=== PATIENT | female | born 1935 | race African-American/Black ===

== ENCOUNTER 2019-09-19 12:44 | Observation (INO) | payer MEDICARE, SELFPAY ==
[2019-09-19] VITALS (8 sets, daily range): BP systolic 121–201; BP diastolic 71–115; PULSE 65–99; RESP 16–20; TEMP 36.3–36.7; O2SAT 96–100; BMI 22.0
--- NOTE | ~2019-09-19 | XR_ITS ---
XR chest 1V 09/19/2019 13:58 Indication: Sternal chest pain. Procedure: AP view of the chest Comparison: 05/30/2019 Findings: Study is rotated. Heart size normal for technique. No focal air space disease, pulmonary ed kayleen, pleural effusion or suspected pneumothorax. There is advanced degenerative changes of the glenoh umeral joints. No acute osseous abnormality. There are cholecystectomy clips. Impression: 1: No acute cardiopulmonary disease. Reviewed, dictated and finalized at location A. Impression: 1: No acute cardiopulmonary disease.
--- NOTE | ~2019-09-19 | CT_ITS ---
EXAMINATION: CT brain wo con DATE: 09/19/2019 14:04 INDICATION: Headache. Behavior change. TECHNIQUE: Computed tomography (CT) of the head was performed without intravenous contrast. The mA wa s adjusted according to patient size. Iterative reconstruction technique was employed. The dose-lengt h product was 605.33 mGy-cm. COMPARISON: Head CT 05/30/2019 FINDINGS: There are scattered areas of low attenuation in the cerebral white matter. There is no intr acranial hemorrhage, acute infarction, or abnormal intracranial mass lesion. The ventricles are karissa l in size. There is mild mucosal thickening in the paranasal sinuses. The orbits are normal. The mast oid air cells are normal. IMPRESSION: 1. Unchanged moderate nonspecific cerebral white matter disease, which likely represents chronic smal l vessel ischemic disease. Reviewed, dictated and finalized at location A. IMPRESSION: 1. Unchanged moderate nonspecific cerebral white matter disease, which likely r epresents chronic small vessel ischemic disease.
--- NOTE | 2019-09-19 12:56 | ED.GENADULT ---
HPI - General Adult General Chief complaint: Unspecified Stated complaint: AGGRESSIVE BEHAVIOR Time Seen by Provider: 09/19/19 12:53 Source: patient and RN notes reviewed Mode of arrival: EMS Limitations: other (Pt refused to cooperate.) History of Present Illness HPI narrative: Pt is an 84 y/o female presenting to the ED c/o AMS. ED nurse reports the pt has been acting aggressive and cussing at her [facility] staff and fellow residents earlier today. Per nurse, the pt is calm at baseline. Pt states she does not want to answer any questions. Pt's family at bedside reports the pt has been c/o CP and SPENCER. HPI is limited due to the pt refusing to cooperate or answer most questions. Most information provided by ED nurse and pt's family. Onset (ago): unknown (Earlier today) Associated symptoms: chest pain (Per family) and headaches (Per family) Related Data Home Medications Medication Instructions Recorded Confirmed Aspirin Low Dose 81 mg BYMOUTH DAILY 09/19/19 09/19/19 Oyster Shell + D3 500 mg BYMOUTH DAILY 09/19/19 09/19/19 alendronate-vitamin D3 1,000 unit BYMOUTH DAILY 09/19/19 09/19/19 azathioprine 50 mg BYMOUTH DAILY 09/19/19 09/19/19 calcium carbonate [Tums] 200 mg PO QID PRN 09/19/19 09/19/19 clopidogrel 75 mg BYMOUTH DAILY 09/19/19 09/19/19 diclofenac sodium 2 g TOPICAL TID PRN 09/19/19 09/19/19 diphenoxylate-atropine 5 mg BYMOUTH PRN PRN MDD 10 09/19/19 09/19/19 gabapentin 300 mg BYMOUTH DAILY 09/19/19 09/19/19 hydrochlorothiazide 25 mg PO DAILY 09/19/19 09/19/19 lansoprazole 15 mg BYMOUTH DAILY 09/19/19 09/19/19 latanoprost 0.005 % OPHTHALMIC (EYE) DAILY 09/19/19 09/19/19 lisinopril 10 mg BYMOUTH DAILY 09/19/19 09/19/19 magnesium oxide 400 mg BYMOUTH DAILY 09/19/19 09/19/19 prednisone 5 mg BYMOUTH DAILY 09/19/19 09/19/19 quetiapine 25 mg BYMOUTH BID 09/19/19 09/19/19 tramadol 50 mg BYMOUTH Q8-10H PRN 09/19/19 09/19/19 Allergies Allergy/AdvReac Type Severity Reaction Status Date / Time No Known Allergies Allergy Verified 05/30/19 01:21 Review of Systems Review of Systems: Narrative: ROS is limited due to pt refusing to cooperate or answer most questions. All systems reviewed & are unremarkable except as noted in HPI and below Cardiovascular: Cardiovascular: Reports chest pain (Per family) Neurologic: Reports headache(s) (Per family) Psychiatric: Psychiatric: Reports behavioral changes (Aggressive (per ED nurse)) [facility] Past Medical History Medical History (Updated 09/19/19 @ 20:51 by Jumana Yates MD) Arthritis Asthma Cataracts, bilateral HTN (hypertension) Rib fracture Tibia fracture Surgical History Surgical History No significant past surgical history Social History Social History Smoking status: Never smoker Gender identity (if verbalized by the patient): Female Exam Const: General: alert Other: patient extremely agitated HENMT: Head: normocephalic and atraumatic Mouth: Yes Normal oral and palatal mucosa present and Yes lip normal Eyes: Conjunctivae: conjunctivae normal Pupils: Equal, round and reactive pupils present EOM: EOMs intact bilaterally Resp: Effort & Inspection: normal respiratory effort, not labored and not tachypneic Auscultation: clear to auscultation bilaterally Cardio: Rate: regular rate Rhythm: regular rhythm Heart sounds: no murmurs GI: GI Palp: Yes Soft to palpation, No Tenderness to palpation present (GI) and No Guarding due to palpation present (GI) Skin: General skin exam: normal color Neuro: General: moves all extremities Psych: Appearance: well kempt Thought content: Yes Paranoid delusions present and Yes other (agitated) Course Course Emergency Course: PAtient presented from [facility] Patient's daughter in law states patient has been in [facility] for [facility] months and her dementia appears to be worsen. Her son states patient was complaining of chest milla
[2019-09-19] MEDS: HALOPERIDOL LACTATE 5 MG/ML VIAL IM (13:28)
[2019-09-19] MEDS: LORAZEPAM INJ 2 MG/ML VIAL 1 MG IM (13:28)
--- NOTE | 2019-09-19 13:43 | ECG_ITS ---
Measurements Intervals [place] Rate: 79 P: 49 IA: 138 QRS: 21 QRSD: 80 T: 50 QT: 334 QTc: 383 Interpretive Statements SINUS RHYTHM VOLTAGE CRITERIA FOR LVH BORDERLINE T WAVE ABNORMALITY- INF/LAT LEADS BASELINE ARTIFACT- I, II, III, AVL BORDERLINE ECG Electronically Signed On 09-19-2019 15:54:54 CDT by Daniel Vizcaino D.O.
[2019-09-19 14:20] LABS: Basophils Percent Auto 0.4 % (0.2-1.2); Eosinophils Absolute Auto 0.1 K/mm3 (0-0.3); Eosinophils Percent Auto 1.8 % (0-4.4); Hematocrit 34.9 % (37.0-47.0); Hemoglobin 10.7 g/dL (12.0-15.0); Immature Granulocyte Absolute 0.01 K/mm3 (0.00-0.031); Immature Granulocyte Percent A 0.2 % (0-0.5); Lymphocytes Absolute Auto 0.47 K/mm3 (0.9-3.2); Lymphocytes Percent Auto 9.3 % (18.3-44.2); Mean Corpuscular HGB Conc 30.7 g/dl (32-36); Mean Corpuscular Volume 91.4 fl (80-100); Mean Platelet Volume 11.1 fl (7.4-10.4); Monocytes Absolute Auto 0.3 K/mm3 (0.1-0.6); Monocytes Percent Auto 6.3 % (2.6-8.5); Neutrophils Absolute Auto 4.2 K/mm3 (1.3-6.7); Platelet Count Result 158 k/mm3 (150-375); Red Blood Count 3.82 M/mm3 (4.2-5.4); Red Cell Distribution Width 13.7 % (11.5-14.5); White Blood Count 5.1 K/mm3 (4.5-10.0)
[2019-09-19 14:28] LABS: INR 1.1; Prothrombin Time 13.7 Seconds (11.1-14.7)
[2019-09-19 14:29] LABS: Partial Thromboplastin Time 31.8 SECONDS (22.3-36.8)
[2019-09-19 14:30] LABS: Alanine Aminotransferase 18 U/L (4-35); Albumin Level 3.6 g/dL (3.5-5.1); Alkaline Phosphatase 113 U/L (38-126); Ammonia < 9 umol/L (9-30); Aspartate Amino Transferase 29 U/L (14-36); Bilirubin,Total 0.5 mg/dL (0.2-1.3); Blood Urea Nitrogen 21 mg/dL (7-17); Carbon Dioxide 28 mmol/L (22-30); Chloride 106 mmol/L (98-107); Estimated Glomerular Filt Rate > 60; Ethanol < 10 mg/dL (<10); Glucose 91 mg/dL (65-105); Magnesium 1.9 mg/dL (1.6-2.3); Potassium 3.9 mmol/L (3.4-5.0); Sodium 143 mmol/L (137-145)
[2019-09-19 14:33] LABS: Add Urine Microscopic? YES; Appearance Urine Clear (Clear); Bacteria Urine 4+ /hpf; Bilirubin Urine Negative (Negative); Blood Urine 1+ (Negative); Color Urine Yellow (Yellow); Glucose Urine UA Negative (Negative); Ketones Urine Negative (Negative); Leukocyte Esterase Ur 1+ LEU/UL (Negative); Mucus Urine Rare /lpf; Nitrate Urine Positive (Negative); Protein Urine Negative (Negative); Specific Grav Ur 1.025 (1.001-1.035); Squamous Epithelial Cell Urine Rare /hpf (Few); Urobilinogen Urine Negative mg/dL (<2.0)
[2019-09-19 14:42] LABS: Troponin I < 0.012 ng/mL (0.000-0.034)
[2019-09-19 14:45] LABS: Amphetamine Screen Urine Negative (Negative); Barbiturate Screen Urine Negative (Negative); Benzodiazepines Screen Urine Negative (Negative); Cannabinoid Screen Urine Negative (Negative); Cocaine Screen Urine Negative (Negative); Methadone Screen Urine Negative (Negative); Opiate Screen Urine Negative (Negative); Phencyclidine Screen Urine Negative (Negative)
[2019-09-19 17:54] LABS: Troponin I < 0.012 ng/mL (0.000-0.034)
--- NOTE | 2019-09-19 20:55 | ADMGEN ---
This patient, Harika Suárez, was admitted to IMU Room 207-01 FROM ER 09/19/191944. Patient/family oriented to hospital policies and general routines including ID bracelet, bed and alarms, visiting hours, pain management, procedures, bathroom and other care routines, personal items, smoking policy, room service/diet, and visiting hours. Valuables list has been completed. Information on how to activate the Rapid Response Team has been discussed. Patient/Family are encouraged to report perceived risks to care and to ask questions if they do not understand what they are told or what they should do.
[2019-09-19 20:56] LABS: Troponin I < 0.012 ng/mL (0.000-0.034)
[2019-09-20] VITALS (7 sets, daily range): BP systolic 152–178; BP diastolic 64–86; PULSE 62–93; RESP 20; TEMP 36.6–37; O2SAT 98–100
[2019-09-20 08:03] LABS: Glucose Point of Care 84 (65-105)
--- NOTE | 2019-09-20 09:33 | PM.IMHP ---
H&P: HPI History of Present Illness Chief complaint: AGGRESSIVE BEHAVIOR Narrative: Date of visit 09/19 899. jaleesa Suárez is a 84 year old demented black female with hypertension and history cirrhosis secondary to autoimmune hepatitis. She is resident of a local group home apparently on the was very belligerent which is very unusual and was brought to the emergency room for evaluation. Here found to have mild UTI and admitted with UTI and altered mental status. There was a question at 1 point of some chest discomfort but she denies any chest discomfort now and EKG and troponins have been normal. Presently does not know why she is in the hospital and wants to eat and go home Review of Systems Review of Systems: Narrative: Not sure how reliable her review of systems is with her dementia Constitutional states she has good appetite and weight is steady Eye no double vision [place] Mouth no pharyngitis laryngitis Pulmonary no shortness breath wheezing or cough CV no chest pain or palpitation GI no nausea vomiting or diarrhea and no melena no hematochezia denies any dysuria Muscle skeletal no particular joint discomfort Integument no skin breakdown rashes Psych no particular problems PMFSH Past Medical History Medical History (Updated 09/20/19 @ 09:42 by Pedro Barboza MD) Arthritis Asthma Cataracts, bilateral HTN (hypertension) Rib fracture Tibia fracture Surgical History Surgical History No significant past surgical history Family History Family History (Updated 09/19/19 @ 20:57 by Kat Mojica RN) Other Unknown family medical history Social History Social History Smoking packs per day: 0.5 Smoking cigarettes per day: 10.0 Years smoked: 2 Smoking pack-years: 1.00 Smoking status: Former smoker Tobacco type: cigarettes Second hand tobacco smoke exposure: No Additional smoking assessment comments: STOPPED SMOKING MANY YRS. AGO Alcohol intake: former Drinks per week: 1 Substance use: never Gender identity (if verbalized by the patient): Female Spiritual care concerns: No Agree to blood products: Yes Meds Home Medications and Allergies Home Medications Medication Instructions Recorded Confirmed Type Aspirin Low Dose 81 mg BYMOUTH DAILY 09/19/19 09/19/19 History Oyster Shell + D3 500 mg BYMOUTH DAILY 09/19/19 09/19/19 History alendronate-vitamin D3 1,000 unit BYMOUTH DAILY 09/19/19 09/19/19 History azathioprine 50 mg BYMOUTH DAILY 09/19/19 09/19/19 History calcium carbonate [Tums] 200 mg PO QID PRN 09/19/19 09/19/19 History clopidogrel 75 mg BYMOUTH DAILY 09/19/19 09/19/19 History diclofenac sodium 2 g TOPICAL TID PRN 09/19/19 09/19/19 History diphenoxylate-atropine 5 mg BYMOUTH PRN PRN MDD 10 09/19/19 09/19/19 History gabapentin 300 mg BYMOUTH DAILY 09/19/19 09/19/19 History hydrochlorothiazide 25 mg PO DAILY 09/19/19 09/19/19 History lansoprazole 15 mg BYMOUTH DAILY 09/19/19 09/19/19 History latanoprost 0.005 % OPHTHALMIC (EYE) DAILY 09/19/19 09/19/19 History lisinopril 10 mg BYMOUTH DAILY 09/19/19 09/19/19 History magnesium oxide 400 mg BYMOUTH DAILY 09/19/19 09/19/19 History prednisone 5 mg BYMOUTH DAILY 09/19/19 09/19/19 History quetiapine 25 mg BYMOUTH BID 09/19/19 09/19/19 History tramadol 50 mg BYMOUTH Q8-10H PRN 09/19/19 09/19/19 History Allergies Allergy/AdvReac Type Severity Reaction Status Date / Time No Known Allergies Allergy Verified 05/30/19 01:21 Vital Signs Vital Signs - 24 hr 09/19/19 12:48 09/19/19 13:49 09/19/19 14:00 Temperature 36.3 C L Pulse Rate 85 99 Respiratory Rate 16 16 Blood Pressure 201/115 H Pulse Oximetry 97 96 09/19/19 16:48 09/19/19 19:31 09/19/19 19:50 Temperature 36.7 C Pulse Rate 65 76 68 Respiratory Rate 16 19 20 Blood Pressure 150/80 H 121/71 151/71 H Pulse Oximetry 99 100 100 09/19/19 20:00
[2019-09-20] MEDS: hydroCHLOROthiazide 25 MG TABLET PO (10:14)
[2019-09-20] MEDS: AZATHIOPRINE 50 MG TABLET BY MOUTH (10:14)
[2019-09-20] MEDS: ASPIRIN 81 MG CHEWABLE TABLET PO (10:14)
[2019-09-20] MEDS: predniSONE 5 MG TABLET BY MOUTH (10:14)
[2019-09-20] MEDS: lisinopriL 10 MG TABLET PO (10:14)
[2019-09-20] MEDS: GABAPENTIN 300 MG CAPSULE BY MOUTH (10:14)
[2019-09-20] MEDS: QUEtiapine FUMARATE 25 MG TABLET BY MOUTH (10:14)
[2019-09-20] MEDS: CLOPIDOGREL BISULFATE 75 MG TABLET BY MOUTH (10:15)
[2019-09-20] MEDS: MAGNESIUM OXIDE 400 MG TABLET BY MOUTH (10:15)
[2019-09-20] MEDS: ENOXAPARIN 40 MG/0.4 ML SYRINGE SUB-Q (10:15)
--- NOTE | 2019-09-21 18:09 | PM.DS ---
DS: Diagnosis Admitting Diagnosis Admitting Diagnosis: Restlessness and agitation Discharge Diagnosis (1) Agitated: Code(s): R45.1 - Restlessness and agitation Status: Acute Assessment and Plan: Behavior here was totally normal for her demented state. She is very cooperative but became tearful wanting to be discharged. There is no reason to continue her observation she was sent back to the half-way (2) Acute UTI (urinary tract infection): Code(s): N39.0 - Urinary tract infection, site not specified Status: Acute Assessment and Plan: With given ceftriaxone while here and urine grew Klebsiella pneumoniae which was sensitive to the ceftriaxone. She had 2 days of treatment here and will have another day of Cipro 500 b.i.d. to finish a 3 day course. It is doubtful whether this had any bearing on her mental status change. (3) HTN (hypertension): Code(s): I10 - Essential (primary) hypertension Status: Acute Assessment and Plan: Pressure slightly toward the high side. Resumed her GRAY-inhibitor and diuretic which were initially held. (4) Dementia: Code(s): F03.90 - Unspecified dementia without behavioral disturbance Status: Acute Assessment and Plan: Ongoing with her history of cirrhosis. Ammonia level nondetected. Could be progression of the disease are could possibly be from low-grade UTI which was treated (5) Cirrhosis of liver: Code(s): K74.60 - Unspecified cirrhosis of liver Status: Acute Assessment and Plan: LFTs are normal. And ammonia level is nondetectable. No evidence of ascites. Continue Imuran and prednisone DS: Summary Hospital Course Hospital Course: 84-year-old hypertensive black female with dementia admitted through the emergency room for observation with altered mental status. Apparently she being somewhat belligerent and combative at the half-way. While here she was cooperative pleasant and only became upset when she thought she was not going to be discharged. Had some mild pyuria and urine did grow Klebsiella which was sensitive to the ceftriaxone which she had and will finish 3 day course of ciprofloxacin at the half-way She will follow-up with her primary care within the next 1-2 weeks Time Spent with Patient Time attestation: Total time spent providing and/or coordinating discharge services: 35 minutes Exam Narrative: Exam Narrative: Condition on discharge Blood pressure 164/76 pulse is 78 regular afebrile Lungs clear CV regular rate rhythm Abdomen is soft nontender Extremities without edema Neuro she is alert she is cooperative no focal deficits She was discharged to the half-way Discharge Plan Discharge Attending physician on discharge: Pedro Barboza Discharging Clinician: Pedro Barboza Patient Disposition: [facility] Activity: as tolerated Diet: low sodium Patient Instructions: Antibiotic Form, Chest Pain (DC), Urinary Tract Infection in Women (ED), Dementia (GEN) Stand Alone Forms: General Discharge Information Follow-up/Referrals: [facility]] - 1 Week Discharge Medications: New ciprofloxacin HCl [Cipro] 500 mg tablet 500 mg PO Q12H Qty: 1 RF: 0 Continued Aspirin Low Dose 81 mg BYMOUTH DAILY RF: 0 Oyster Shell + D3 500 mg BYMOUTH DAILY RF: 0 alendronate-vitamin D3 1,000 unit BYMOUTH DAILY RF: 0 azathioprine 50 mg BYMOUTH DAILY RF: 0 clopidogrel 75 mg BYMOUTH DAILY RF: 0 diclofenac sodium 2 g topical TID PRN (Reason: Pain) RF: 0 diphenoxylate-atropine 5 mg BYMOUTH PRN MDD 10 PRN (Reason: Diarrhea) RF: 0 gabapentin 300 mg BYMOUTH DAILY RF: 0 lansoprazole 15 mg BYMOUTH DAILY RF: 0 latanoprost 0.005 % ophthalmic (eye) DAILY RF: 0 lisinopril 10 mg BYMOUTH DAILY RF: 0 magnesium oxide 400 mg BYMOUTH DAILY RF: 0
== END 2019-09-20 12:20 ==
LOC: ANHED 14:43 → ANHIMU 18:49
PROVIDERS: Admitting Provider Family Medicine; Emergency Provider General Practice; Visit Provider Family Medicine
DX: N39.0 Urinary tract infection, site not specified (principal); B96.1 Klebsiella pneumoniae [K. pneumoniae] as the cause of diseases classified elsewhere; R45.1 Restlessness and agitation; F03.90 Unspecified dementia, unspecified severity, without behavioral disturbance, psychotic disturbance, mood disturbance, and anxiety; I10 Essential (primary) hypertension; R07.9 Chest pain, unspecified; K74.69 Other cirrhosis of liver; Z87.891 Personal history of nicotine dependence; Z79.82 Long term (current) use of aspirin; Z79.899 Other long term (current) drug therapy
CPT/HCPCS: 36415; 51701; 70450; 71045; 80053; 80307; 81001; 82140; 83735; 84484; 85025; 85610; 85730; 87077; 87081; 87086; 87088; 87186; 93005; 96365; 96372; 99285; A9270; G0378; J0696; J1630; J1650; J2060; J7512

== ENCOUNTER 2020-05-03 14:58 | Observation (INO) | payer MEDICARE, MEDICAID, SELFPAY ==
[2020-05-03] VITALS (8 sets, daily range): BP systolic 101–140; BP diastolic 68–98; PULSE 72–84; RESP 13–18; TEMP 36.6–36.7; O2SAT 96–100; BMI 22.2
--- NOTE | ~2020-05-03 | XR_ITS ---
XR chest 1V 05/03/2020 15:46 Indication: Abnormal labs. Procedure: AP view of the chest Comparison: Comparison to multiple prior studies sequentially, with oldest reviewed study dated 10/21. Findings: Heart size normal. Linear infiltrates of the lung bases, likely atelectasis. No focal pneum onia, edema, effusion or pneumothorax. There are advanced degenerative changes of the glenohumeral jorge alberto ints. Impression: 1: Linear infiltrates of the lower lung zones, likely atelectasis. Reviewed, dictated and finalized at location B. Impression: 1: Linear infiltrates of the lower lung zones, likely atelectasis.
--- NOTE | ~2020-05-03 | US_ITS ---
EXAMINATION: US renal BI DATE: 05/04/2020 11:14 INDICATION: Renal failure TECHNIQUE: Multiple ultrasound grayscale images of the kidneys were obtained. COMPARISON: None. FINDINGS: The right kidney measures 7.8 x 3.2 x 3.6 cm. The left kidney measures 8.2 x 3.5 x 4.3 cm. The kidney s demonstrate normal echogenicity. 1.8 cm anechoic cyst at the upper pole of the left kidney. There i s no hydronephrosis in either kidney. No stones identified. There appears to be some wall thickening of the bladder which may be related to decompressed state which limits evaluation. IMPRESSION: 1. Likely age-related mild bilateral renal atrophy with 1.8 cm left renal cyst. No hydronephrosis. Reviewed, dictated and finalized at location A. IMPRESSION: 1. Likely age-related mild bilateral renal atrophy with 1.8 cm left renal cyst . No hydronephrosis.
--- NOTE | ~2020-05-03 | CT_ITS ---
EXAMINATION: CT brain wo con DATE: 05/03/2020 15:35 INDICATION: Increasing confusion. TECHNIQUE: Computed tomography (CT) of the head was performed without intravenous contrast. The dose- length product was 605.33 mGy-cm. The mA was adjusted according to patient size. Iterative reconstruc tion technique was employed. COMPARISON: CT dated 09/19/2019 FINDINGS: Generalized atrophy. There are scattered moderate periventricular and subcortical white mat ter changes, most likely related to small vessel ischemic disease (microangiopathy). There is intracr anial atherosclerosis. No acute intracranial hemorrhage, infarction, mass or mass effect. Sagittal images are unremarkable. Small air-fluid level left maxillary sinus. Mastoids are pneumatize d. No depressed skull fractures. IMPRESSION: 1. No acute intracranial abnormality. 2: Left maxillary sinusitis. 3: Chronic age-related findings. Reviewed, dictated and finalized at location B.
--- NOTE | 2020-05-03 15:18 | ED.GENADULT ---
HPI - General Adult General Chief complaint: Recheck/Abnormal Lab/Rx Stated complaint: AMS Time Seen by Provider: 05/03/20 15:01 Source: patient and RN notes reviewed Mode of arrival: EMS Limitations: altered mental status History of Present Illness HPI narrative: Patient is an 84-year-old female [facility] due to altered mental status and abnormal lab value, creatinine was 3.4 when it was drawn at the penitentiary yesterday. Patient is slightly allergic but able to answer queries. Patient denies headache, dizziness, weakness, numbness, chest pain, abdominal pain, nausea vomiting, diarrhea or fever Related Data Home Medications Medication Instructions Recorded Confirmed Aspirin Low Dose 81 mg BYMOUTH DAILY 09/19/19 09/19/19 Oyster Shell + D3 500 mg BYMOUTH DAILY 09/19/19 09/19/19 alendronate-vitamin D3 1,000 unit BYMOUTH DAILY 09/19/19 09/19/19 azathioprine 50 mg BYMOUTH DAILY 09/19/19 09/19/19 calcium carbonate [Tums] 200 mg PO QID PRN 09/19/19 09/19/19 clopidogrel 75 mg BYMOUTH DAILY 09/19/19 09/19/19 diclofenac sodium 2 g TOPICAL TID PRN 09/19/19 09/19/19 diphenoxylate-atropine 5 mg BYMOUTH PRN PRN MDD 10 09/19/19 09/19/19 gabapentin 300 mg BYMOUTH DAILY 09/19/19 09/19/19 lansoprazole 15 mg BYMOUTH DAILY 09/19/19 09/19/19 latanoprost 0.005 % OPHTHALMIC (EYE) DAILY 09/19/19 09/19/19 lisinopril 10 mg BYMOUTH DAILY 09/19/19 09/19/19 magnesium oxide 400 mg BYMOUTH DAILY 09/19/19 09/19/19 prednisone 5 mg BYMOUTH DAILY 09/19/19 09/19/19 quetiapine 25 mg BYMOUTH BID 09/19/19 09/19/19 tramadol 50 mg BYMOUTH Q8-10H PRN 09/19/19 09/19/19 Allergies Allergy/AdvReac Type Severity Reaction Status Date / Time No Known Allergies Allergy Verified 05/03/20 17:38 Review of Systems Review of Systems: All systems reviewed & are unremarkable except as noted in HPI and below ROS unobtainable: Yes unobtainable due to mental status [facility] Past Medical History Medical History (Updated 05/03/20 @ 18:00 by Felipe Arellano MD) Arthritis Asthma Cataracts, bilateral HTN (hypertension) Rib fracture Tibia fracture Surgical History Surgical History No significant past surgical history Family History Family History (Updated 09/19/19 @ 20:57 by Kat Mojica RN) Other Unknown family medical history Social History Social History Smoking packs per day: 0.5 Smoking cigarettes per day: 10.0 Years smoked: 2 Smoking pack-years: 1.00 Smoking status: Former smoker Tobacco type: cigarettes Second hand tobacco smoke exposure: No Additional smoking assessment comments: STOPPED SMOKING MANY YRS. AGO Alcohol intake: former Drinks per week: 1 Substance use: never Gender identity (if verbalized by the patient): Female Spiritual care concerns: No Agree to blood products: Yes Exam Const: General: cooperative, comfortable, no acute distress and well developed Orientation/consciousness: No confusion Limitations: no limitations Other: Patient is frail, lethargic HENMT: Head: normal to inspection, normocephalic and atraumatic Ears: hearing grossly normal bilaterally, TM normal on the right and TM normal on the left General nose exam: Normal external nose present, Normal nares present and No nasal discharge present Face and sinus: normal facial exam Mouth: Yes Normal oral and palatal mucosa present, Yes lip normal, Yes tongue normal and Yes oropharynx normal Throat: posterior oropharynx normal, tonsils normal and uvula midline Eyes: General: appearance normal, both eyes and all related structures Pupils: Equal, round and reactive pupils present EOM: EOMs intact bilaterally Neck: Neck: normal visual inspection, full ROM, no lymphadenopathy and no meningeal signs Chest: Chest palpation & inspection: normal inspection of the chest Resp: Effort & Inspection: normal respiratory effort, able to speak
[2020-05-03 15:39] LABS: INR 1.2; Prothrombin Time 15.3 Seconds (11.1-14.7)
[2020-05-03 15:40] LABS: Partial Thromboplastin Time 33.9 SECONDS (22.3-36.8)
[2020-05-03 15:42] LABS: Alanine Aminotransferase 28 U/L (4-35); Albumin Level 3.9 g/dL (3.5-5.1); Alkaline Phosphatase 128 U/L (38-126); Anion Gap 11 mmol/L (8-16); Aspartate Amino Transferase 69 U/L (14-36); Bilirubin,Total 0.4 mg/dL (0.2-1.3); Blood Urea Nitrogen 97 mg/dL (7-17); Calcium 9.1 mg/dL (8.4-10.2); Carbon Dioxide 31 mmol/L (22-30); Chloride 97 mmol/L (98-107); Estimated CRCL calculation 10 ml/min; Estimated Glomerular Filt Rate 16; Glucose 110 mg/dL (65-105); Lactic Acid Reflex 1.5 mmol/L (0.7-2.1); Potassium 4.2 mmol/L (3.4-5.0); Sodium 139 mmol/L (137-145)
[2020-05-03 15:48] LABS: Basophils Percent Auto 0.6 % (0.2-1.2); Eosinophils Absolute Auto 0.4 K/mm3 (0-0.3); Eosinophils Percent Auto 6.2 % (0-4.4); Hematocrit 38.7 % (37.0-47.0); Immature Granulocyte Absolute 0.04 K/mm3 (0.00-0.031); Immature Granulocyte Percent A 0.6 % (0-0.5); Lymphocytes Absolute Auto 0.78 K/mm3 (0.9-3.2); Lymphocytes Percent Auto 11.1 % (18.3-44.2); Mean Corpuscular Hemoglobin 28.4 pg (26-34); Mean Corpuscular Volume 91.5 fl (80-100); Mean Platelet Volume 10.8 fl (7.4-10.4); Monocytes Absolute Auto 0.6 K/mm3 (0.1-0.6); Monocytes Percent Auto 8.7 % (2.6-8.5); Neutrophils Absolute Auto 5.1 K/mm3 (1.3-6.7); Neutrophils Percent Auto 72.8 % (45.5-73.1); Platelet Count Result 243 k/mm3 (150-375); Red Blood Count 4.23 M/mm3 (4.2-5.4); Red Cell Distribution Width 12.9 % (11.5-14.5); White Blood Count 7.1 K/mm3 (4.5-10.0)
[2020-05-03 15:54] LABS: Troponin I < 0.012 ng/mL (0.000-0.034)
[2020-05-03] MEDS: LACTATED RINGERS 1,000 ML 999 ML IV CONT (16:30)
[2020-05-03 16:54] LABS: Add Urine Microscopic? NO; Appearance Urine Clear (Clear); Bilirubin Urine Negative (Negative); Blood Urine Negative (Negative); Color Urine Yellow (Yellow); Glucose Urine UA Negative (Negative); Ketones Urine Negative (Negative); Leukocyte Esterase Ur Negative LEU/UL (Negative); Nitrate Urine Negative (Negative); Protein Urine Negative (Negative); Specific Grav Ur 1.014 (1.001-1.035); Urobilinogen Urine Negative mg/dL (<2.0)
[2020-05-03] MEDS: LACTATED RINGERS 1,000 ML 125 ML IV CONT (22:05)
--- NOTE | 2020-05-03 23:40 | ADMGEN ---
This patient, Harika Orantes, was admitted to [facility] Surg Room 322-01. Patient/family oriented to hospital policies and general routines including ID bracelet, bed and alarms, visiting hours, pain management, procedures, bathroom and other care routines, personal items, smoking policy, room service/diet, and visiting hours. Information on how to activate the Rapid Response Team has been discussed. Patient/Family are encouraged to report perceived risks to care and to ask questions if they do not understand what they are told or what they should do.
[2020-05-04 06:00] VITALS: BP 134/60; PULSE 67; RESP 20; TEMP 37; O2SAT 97
[2020-05-04] MEDS: LACTATED RINGERS 1,000 ML 125 ML IV CONT ×3 (06:21→21:15)
[2020-05-04] MEDS: ACETAMINOPHEN 325 MG TABLET 650 MG PO (09:40)
[2020-05-04] MEDS: CLOPIDOGREL BISULFATE 75 MG TABLET PO (11:39)
[2020-05-04] MEDS: LATANOPROST 0.005% OP SOLN 2.5 ML BTL 1 DROP EACH EYE (11:39)
[2020-05-04] MEDS: ASPIRIN 81 MG CHEWABLE TABLET PO (11:39)
[2020-05-04] MEDS: PANTOPRAZOLE 40 MG TABLET PO (11:39)
[2020-05-04] MEDS: GABAPENTIN 300 MG CAPSULE PO ×2 (11:39→17:46)
[2020-05-04] MEDS: QUEtiapine FUMARATE 25 MG TABLET PO ×2 (11:39→21:12)
[2020-05-04] MEDS: predniSONE 5 MG TABLET PO (11:40)
--- NOTE | 2020-05-04 13:50 | PM.IMHP ---
H&P: HPI History of Present Illness Date/Time: 05/04/20 13:50 Chief complaint: Acute Renal Failure Narrative: Date of visit 05/04 Ann Marie Durant is a 84 year old female with mild dementia, arthritis, and hypertension was sent [facility] the [facility] to [facility] for evaluation for acute renal failure that was found on laboratory were 1 day prior, BUN of 97 and a creatinine of 3.4. She denies any nausea vomiting or diarrhea. She states that her appetite has been okay but apparently she was sent for some confusion also. No fever no chills. She has had no urinary symptoms. No shortness breath wheezing or cough. Review of Systems Review of Systems: Narrative: constitutional patient states weight is stable and appetite good eye no double vision scotoma mouth no pharyngitis laryngitis CV no chest pain palpitation GI no melena, hematochezia, diarrhea, constipation muscle skeletal no particular joint discomfort integument no skin breakdown rashes neuropsych no seizures or syncope PMFSH Past Medical History Medical History (Updated 05/04/20 @ 14:04 by Pedro Barboza MD) Arthritis Asthma Cataracts, bilateral HTN (hypertension) Rib fracture Tibia fracture Surgical History Surgical History No significant past surgical history Family History Family History (Updated 05/04/20 @ 13:56 by Pedro Barboza MD) Father , in his 60s and no definite cause No problems noted. Mother , in her 70s of unknown etiology No problems noted. Other Unknown family medical history Social History Social History (Updated 05/04/20 @ 13:57 by Pedro Barboza MD) Social History: lives in a halfway. She states that she has 10 children that are living and well Smoking packs per day: 0.5 Smoking cigarettes per day: 10.0 Years smoked: 2 Smoking pack-years: 1.00 Smoking status: Unknown if ever smoked Tobacco type: cigarettes Second hand tobacco smoke exposure: No Additional smoking assessment comments: STOPPED SMOKING MANY YRS. AGO Alcohol intake: unknown Drinks per week: 1 Substance use: unknown Gender identity (if verbalized by the patient): Female Spiritual care concerns: No Agree to blood products: Yes Meds Home Medications and Allergies Home Medications Medication Instructions Recorded Confirmed Type Aspirin Low Dose 81 mg BYMOUTH DAILY 09/19/19 05/03/20 History Oyster Shell + D3 500 mg BYMOUTH DAILY 09/19/19 05/03/20 History alendronate-vitamin D3 1,000 unit BYMOUTH DAILY 09/19/19 05/03/20 History azathioprine 25 mg BYMOUTH DAILY 09/19/19 05/03/20 History calcium carbonate [Tums] 200 mg PO QID PRN 09/19/19 05/03/20 History clopidogrel 75 mg BYMOUTH DAILY 09/19/19 05/03/20 History diclofenac sodium 2 g TOPICAL TID PRN 09/19/19 05/03/20 History diphenoxylate-atropine 5 mg BYMOUTH PRN PRN MDD 10 09/19/19 05/03/20 History gabapentin 300 mg BYMOUTH BID 09/19/19 05/03/20 History lansoprazole 15 mg BYMOUTH DAILY 09/19/19 05/03/20 History latanoprost 0.005 % OPHTHALMIC (EYE) DAILY 09/19/19 05/03/20 History lisinopril 10 mg BYMOUTH DAILY 09/19/19 05/03/20 History magnesium oxide 400 mg BYMOUTH DAILY 09/19/19 05/03/20 History prednisone 5 mg BYMOUTH DAILY 09/19/19 05/03/20 History quetiapine 25 mg BYMOUTH BID 09/19/19 05/03/20 History tramadol 50 mg BYMOUTH Q8-10H PRN 09/19/19 05/03/20 History Allergies Allergy/AdvReac Type Severity Reaction Status Date / Time No Known Allergies Allergy Verified 05/04/20 02:43 Vital Signs Vital Signs - 24 hr 05/03/20 14:58 05/03/20 15:15 05/03/20 16:15 Temperature 36.6 C Pulse Rate 84 84 79 Respiratory Rate 16 16 16 Blood Pressure 140/98 H 109/68 106/75 Pulse Oximetry 96 99 96 05/03/20 16:46 05/03/20 17:45 05/03/20 19:38 Temperature 36.6 C Pulse Rate 73 74 72 Respiratory Rate 13 14 16 Blood Pressure 108/85 108/80 130/
[2020-05-04 14:00] VITALS: BP 138/53; PULSE 75; RESP 16; TEMP 36.8; O2SAT 98
[2020-05-04] MEDS: azaTHIOprine 25 MG TABLET PO (15:08)
[2020-05-04] MEDS: HEPARIN SODIUM 5,000 UNITS/ML VIAL 5000 UNITS SUB-Q (21:12)
[2020-05-04 22:00] VITALS: BP 133/62; PULSE 63; RESP 18; TEMP 36.8; O2SAT 100
[2020-05-05 06:00] VITALS: BP 122/61; PULSE 65; RESP 18; TEMP 36.7; O2SAT 97
[2020-05-05 06:27] LABS: Basophils Percent Auto 0.5 % (0.2-1.2); Eosinophils Absolute Auto 0.3 K/mm3 (0-0.3); Eosinophils Percent Auto 4.1 % (0-4.4); Hematocrit 28.8 % (37.0-47.0); Hemoglobin 8.9 g/dL (12.0-15.0); Immature Granulocyte Absolute 0.03 K/mm3 (0.00-0.031); Immature Granulocyte Percent A 0.5 % (0-0.5); Lymphocytes Absolute Auto 0.83 K/mm3 (0.9-3.2); Lymphocytes Percent Auto 13.5 % (18.3-44.2); Mean Corpuscular HGB Conc 30.9 g/dl (32-36); Mean Corpuscular Hemoglobin 28.3 pg (26-34); Mean Corpuscular Volume 91.4 fl (80-100); Mean Platelet Volume 10.5 fl (7.4-10.4); Monocytes Absolute Auto 0.5 K/mm3 (0.1-0.6); Monocytes Percent Auto 8.5 % (2.6-8.5); Neutrophils Absolute Auto 4.5 K/mm3 (1.3-6.7); Neutrophils Percent Auto 72.9 % (45.5-73.1); Platelet Count Result 194 k/mm3 (150-375); Red Blood Count 3.15 M/mm3 (4.2-5.4); Red Cell Distribution Width 12.4 % (11.5-14.5); White Blood Count 6.2 K/mm3 (4.5-10.0)
[2020-05-05 06:49] LABS: Albumin Level 2.7 g/dL (3.5-5.1); Anion Gap 3 mmol/L (8-16); Blood Urea Nitrogen 57 mg/dL (7-17); Calcium 8.3 mg/dL (8.4-10.2); Carbon Dioxide 29 mmol/L (22-30); Chloride 109 mmol/L (98-107); Estimated CRCL calculation 23 ml/min; Estimated Glomerular Filt Rate 37; Glucose 90 mg/dL (65-105); Magnesium 2.9 mg/dL (1.6-2.3); Phosphorus 3.2 mg/dL (2.5-4.5); Potassium 4.1 mmol/L (3.4-5.0); Sodium 141 mmol/L (137-145)
[2020-05-05] MEDS: LACTATED RINGERS 1,000 ML 125 ML IV CONT (07:41)
[2020-05-05] MEDS: GABAPENTIN 300 MG CAPSULE PO ×2 (09:04→17:25)
[2020-05-05] MEDS: azaTHIOprine 25 MG TABLET PO (09:04)
[2020-05-05] MEDS: CLOPIDOGREL BISULFATE 75 MG TABLET PO (09:05)
[2020-05-05] MEDS: ASPIRIN 81 MG CHEWABLE TABLET PO (09:05)
[2020-05-05] MEDS: predniSONE 5 MG TABLET PO (09:05)
[2020-05-05] MEDS: PANTOPRAZOLE 40 MG TABLET PO (09:05)
[2020-05-05] MEDS: LATANOPROST 0.005% OP SOLN 2.5 ML BTL 1 DROP EACH EYE (09:05)
[2020-05-05] MEDS: HEPARIN SODIUM 5,000 UNITS/ML VIAL 5000 UNITS SUB-Q ×2 (09:05→20:54)
[2020-05-05] MEDS: ACETAMINOPHEN 325 MG TABLET 650 MG PO ×2 (09:40→20:56)
[2020-05-05] MEDS: QUEtiapine FUMARATE 25 MG TABLET PO (09:43)
[2020-05-05 14:00] VITALS: BP 113/49; PULSE 67; RESP 18; TEMP 36.4; O2SAT 100
--- NOTE | 2020-05-05 15:16 | PM.IMPN ---
Progress Note: A&P Assessment and Plan (1) Acute renal failure: Qualifiers: Acute renal failure type: unspecified Qualified Code(s): N17.9 - Acute kidney failure, unspecified Code(s): N17.9 - Acute kidney failure, unspecified Status: Acute Assessment and Plan: looks to be all pre renal from Initial laboratory work. Urinalysis is benign. Continue to hydrate and follow. Renal sonogram. No obstruction. Hold GRAY-inhibitor and hold topical anti-inflammatories, creatinine 09/19/2019 was 0.9 And today has fallen to 1.6 (2) Altered mental status: Qualifiers: Altered mental status type: somnolence Qualified Code(s): R40.0 - Somnolence Code(s): R41.82 - Altered mental status, unspecified Status: Acute Assessment and Plan: appears totally oriented present time. Continue to monitor (3) HTN (hypertension): Code(s): I10 - Essential (primary) hypertension Status: Acute Assessment and Plan: blood pressure fine without lisinopril continue to monitor (4) Dementia: Code(s): F03.90 - Unspecified dementia without behavioral disturbance Status: Acute Assessment and Plan: mild and continue HS Seroquel (5) Cirrhosis of liver: Code(s): K74.60 - Unspecified cirrhosis of liver Status: Acute Assessment and Plan: history of such found on CT in the past. No ascites or overt signs of portal hypertension (6) DVT prophylaxis: Code(s): Z29.9 - Encounter for prophylactic measures, unspecified Status: Acute Assessment and Plan: subcu heparin with the renal failure (7) Long-term use of immunosuppressant medication: Code(s): Z79.899 - Other group home (current) drug therapy Status: Acute Assessment and Plan: using the prednisone and Imuran which I assume is probably for her arthritis , and will continue. Doubt would need stress doses of steroids at this time but will continue to monitor Subjective Date/time seen: 05/05/20 15:16 Interval history: Date of visit 05/05. [age] y/[facility] elevated creatinine. Had no specific complaints. Creatinine has fallen with hydration still feels well without any complaints Exam Narrative: Exam Narrative: Blood pressure 114/50 pulse is 66 sat 100% on room air afebrile Pupils equal reactive light sclera anicteric Lungs clear no wheezing consolidation CV regular rate rhythm Abdomen soft nontender no masses Extremities without edema distal pulses 2+ Neuro alert pleasant cooperative no focal deficits Objective Data Vital Signs Vital Signs: Vital Signs - 24 hr 05/04/20 22:00 05/05/20 06:00 05/05/20 14:00 Temperature 36.8 C 36.7 C 36.4 C Pulse Rate 63 65 67 Respiratory Rate 18 18 18 Blood Pressure 133/62 122/61 113/49 L Pulse Oximetry 100 97 100 Intake/Output Intake/Output: Intake & Output 05/02/20 05/03/20 05/04/20 05/05/20 23:59 23:59 23:59 23:59 Intake Total 1000 3150 1540 Output Total 150 301 200 Balance 850 2849 1340 Meds/Results Medications: Active Medications Generic Name Dose Route Start Last Admin Trade Name Freq PRN Reason Stop Dose Admin Acetaminophen 650 mg 05/04/20 09:21 05/05/20 09:40 Acetaminophen 325 Mg Tablet PO 650 mg Q6H PRN Administration Mild Pain (1-3) or Fever Aspirin 81 mg 05/04/20 08:00 05/05/20 09:05 Aspirin 81 Mg Chewable Tablet PO 81 mg DAILY@0800 [facility] Administration Azathioprine 25 mg 05/04/20 09:00 05/05/20 09:04 Azathioprine 25 Mg Tablet PO 25 mg QAM [facility] Administration Calcium Carbonate 200 mg 05/04/20 09:19 Calcium Carbonate (Tums) 500 Mg (200 Mg Elemental) PO QID PRN Acid Reflux Calcium Carbonate 500 mg 05/04/20 09:00 05/05/20 09:04 Calcium/Vitamin D 500 Mg Tablet PO 500 mg QAM [facility] Administration Clopidogrel Bisulfate 75 mg 05/04/20 09:00 05/05/20 09:05 Clopidogrel
[2020-05-05] MEDS: QUEtiapine FUMARATE 12.5 MG TABLET PO (20:51)
[2020-05-05] MEDS: LACTATED RINGERS 1,000 ML 75 ML IV CONT (21:02)
[2020-05-05 22:00] VITALS: BP 114/48; PULSE 66; RESP 18; TEMP 36.4; O2SAT 100
[2020-05-06] MEDS: ACETAMINOPHEN 325 MG TABLET 650 MG PO ×2 (05:52→20:31)
[2020-05-06 05:59] LABS: Basophils Percent Auto 0.5 % (0.2-1.2); Eosinophils Absolute Auto 0.3 K/mm3 (0-0.3); Eosinophils Percent Auto 5.5 % (0-4.4); Hematocrit 27.3 % (37.0-47.0); Hemoglobin 8.8 g/dL (12.0-15.0); Immature Granulocyte Absolute 0.04 K/mm3 (0.00-0.031); Immature Granulocyte Percent A 0.7 % (0-0.5); Lymphocytes Absolute Auto 0.97 K/mm3 (0.9-3.2); Lymphocytes Percent Auto 17.3 % (18.3-44.2); Mean Corpuscular HGB Conc 32.2 g/dl (32-36); Mean Corpuscular Hemoglobin 28.9 pg (26-34); Mean Corpuscular Volume 89.5 fl (80-100); Mean Platelet Volume 10.4 fl (7.4-10.4); Monocytes Absolute Auto 0.5 K/mm3 (0.1-0.6); Neutrophils Absolute Auto 3.8 K/mm3 (1.3-6.7); Platelet Count Result 185 k/mm3 (150-375); Red Blood Count 3.05 M/mm3 (4.2-5.4); Red Cell Distribution Width 12.5 % (11.5-14.5); White Blood Count 5.6 K/mm3 (4.5-10.0)
[2020-05-06 06:00] VITALS: BP 148/61; PULSE 117; RESP 18; TEMP 36.7; O2SAT 100
[2020-05-06 06:30] LABS: Anion Gap 5 mmol/L (8-16); Blood Urea Nitrogen 43 mg/dL (7-17); Calcium 7.9 mg/dL (8.4-10.2); Carbon Dioxide 28 mmol/L (22-30); Chloride 112 mmol/L (98-107); Estimated CRCL calculation 24 ml/min; Estimated Glomerular Filt Rate 40; Glucose 91 mg/dL (65-105); Potassium 4.1 mmol/L (3.4-5.0); Sodium 145 mmol/L (137-145)
[2020-05-06 06:43] VITALS: PULSE 65
[2020-05-06 06:49] LABS: Iron 44 ug/dL (37-170)
[2020-05-06 07:02] LABS: Percent Iron Saturation 22 % (20-50)
[2020-05-06 08:00] VITALS: PULSE 65; RESP 18; O2SAT 100
[2020-05-06] MEDS: azaTHIOprine 25 MG TABLET PO (08:17)
[2020-05-06] MEDS: GABAPENTIN 300 MG CAPSULE PO ×2 (08:17→17:27)
[2020-05-06] MEDS: ASPIRIN 81 MG CHEWABLE TABLET PO (08:17)
[2020-05-06] MEDS: CLOPIDOGREL BISULFATE 75 MG TABLET PO (08:18)
[2020-05-06] MEDS: HEPARIN SODIUM 5,000 UNITS/ML VIAL 5000 UNITS SUB-Q ×2 (08:18→20:38)
[2020-05-06] MEDS: LATANOPROST 0.005% OP SOLN 2.5 ML BTL 1 DROP EACH EYE (08:18)
[2020-05-06] MEDS: predniSONE 5 MG TABLET PO (08:18)
[2020-05-06] MEDS: PANTOPRAZOLE 40 MG TABLET PO (08:18)
[2020-05-06 14:00] VITALS: BP 124/61; PULSE 63; RESP 20; TEMP 36.6; O2SAT 100
--- NOTE | 2020-05-06 17:31 | PM.IMPN ---
Progress Note: A&P Assessment and Plan (1) Acute renal failure: Qualifiers: Acute renal failure type: unspecified Qualified Code(s): N17.9 - Acute kidney failure, unspecified Code(s): N17.9 - Acute kidney failure, unspecified Status: Acute Assessment and Plan: looks to be all pre renal from Initial laboratory work. Urinalysis is benign. Continue to hydrate and follow. Renal sonogram. No obstruction. Holding GRAY-inhibitor and hold topical anti-inflammatories, creatinine 09/19/2019 was 0.9 And today has fallen to 1.5 (2) Altered mental status: Qualifiers: Altered mental status type: somnolence Qualified Code(s): R40.0 - Somnolence Code(s): R41.82 - Altered mental status, unspecified Status: Acute Assessment and Plan: appears totally oriented present time but intermitant confusion (3) HTN (hypertension): Code(s): I10 - Essential (primary) hypertension Status: Acute Assessment and Plan: blood pressure fine without lisinopril continue to monitor (4) Dementia: Code(s): F03.90 - Unspecified dementia without behavioral disturbance Status: Acute Assessment and Plan: mild and continue HS Seroquel (5) Cirrhosis of liver: Code(s): K74.60 - Unspecified cirrhosis of liver Status: Acute Assessment and Plan: history of such found on CT in the past. No ascites or overt signs of portal hypertension (6) DVT prophylaxis: Code(s): Z29.9 - Encounter for prophylactic measures, unspecified Status: Acute Assessment and Plan: subcu heparin with the renal failure (7) Long-term use of immunosuppressant medication: Code(s): Z79.899 - Other [facility] (current) drug therapy Status: Acute Assessment and Plan: using the prednisone and Imuran which I assume is probably for her arthritis , and will continue. Doubt would need stress doses of steroids at this time but will continue to monitor Subjective Date/time seen: 05/06/20 17:31 Interval history: Date of visit 05/06. [age] y/o [facility] evaluation elevated creatinine. Had no specific complaints. Creatinine has fallen with hydration still feels well without any complaints Exam Narrative: Exam Narrative: Blood pressure 124/60 pulse is 62 sat 100% on room air afebrile Pupils equal reactive light sclera anicteric Lungs clear no wheezing consolidation CV regular rate rhythm Abdomen soft nontender no masses Extremities without edema distal pulses 2+ Neuro alert pleasant cooperative no focal deficits Objective Data Vital Signs Vital Signs: Vital Signs - 24 hr 05/05/20 22:00 05/06/20 06:00 05/06/20 06:43 Temperature 36.4 C 36.7 C Pulse Rate 66 117 H 65 Respiratory Rate 18 18 Blood Pressure 114/48 L 148/61 H Pulse Oximetry 100 100 05/06/20 08:00 05/06/20 14:00 Temperature 36.6 C Pulse Rate 65 63 Respiratory Rate 18 20 Blood Pressure 124/61 Pulse Oximetry 100 100 Intake/Output Intake/Output: Intake & Output 05/03/20 05/04/20 05/05/20 05/06/20 23:59 23:59 23:59 23:59 Intake Total 1000 3150 3270 210 Output Total 150 301 600 900 Balance 850 2849 2670 -690 Meds/Results Medications: Active Medications Generic Name Dose Route Start Last Admin Trade Name Freq PRN Reason Stop Dose Admin Acetaminophen 650 mg 05/04/20 09:21 05/06/20 05:52 Acetaminophen 325 Mg Tablet PO 650 mg Q6H PRN Administration Mild Pain (1-3) or Fever Aspirin 81 mg 05/04/20 08:00 05/06/20 08:17 Aspirin 81 Mg Chewable Tablet PO 81 mg DAILY@0800 [facility] Administration Azathioprine 25 mg 05/04/20 09:00 05/06/20 08:17 Azathioprine 25 Mg Tablet PO 25 mg QAM [facility] Administration Calcium Carbonate 200 mg 05/04/20 09:19 Calcium Carbonate (Tums) 500 Mg (200 Mg Elemental) PO QID PRN Acid Reflux Calcium Carbonate 500 mg 05/04/20 09:00 05/06/20 08:18
[2020-05-06] MEDS: QUEtiapine FUMARATE 12.5 MG TABLET PO (20:31)
[2020-05-06 22:00] VITALS: BP 142/62; PULSE 59; RESP 20; TEMP 36.9; O2SAT 98
[2020-05-07 06:00] VITALS: BP 126/68; PULSE 60; RESP 20; TEMP 36.2; O2SAT 100
[2020-05-07 06:29] LABS: Anion Gap 2 mmol/L (8-16); Blood Urea Nitrogen 35 mg/dL (7-17); Carbon Dioxide 27 mmol/L (22-30); Chloride 114 mmol/L (98-107); Estimated CRCL calculation 26 ml/min; Estimated Glomerular Filt Rate 43; Glucose 87 mg/dL (65-105); Sodium 143 mmol/L (137-145)
[2020-05-07 08:00] VITALS: PULSE 60; RESP 20; O2SAT 100
[2020-05-07] MEDS: ASPIRIN 81 MG CHEWABLE TABLET PO (10:30)
[2020-05-07] MEDS: GABAPENTIN 300 MG CAPSULE PO ×2 (10:30→16:29)
[2020-05-07] MEDS: HEPARIN SODIUM 5,000 UNITS/ML VIAL 5000 UNITS SUB-Q (10:30)
[2020-05-07] MEDS: LATANOPROST 0.005% OP SOLN 2.5 ML BTL 1 DROP EACH EYE (10:30)
[2020-05-07] MEDS: PANTOPRAZOLE 40 MG TABLET PO (10:30)
[2020-05-07] MEDS: CLOPIDOGREL BISULFATE 75 MG TABLET PO (10:31)
[2020-05-07] MEDS: azaTHIOprine 25 MG TABLET PO (10:31)
[2020-05-07] MEDS: predniSONE 5 MG TABLET PO (10:31)
[2020-05-07] MEDS: traMADol HCL (*CRX) 50 MG TABLET PO (10:34)
[2020-05-07 14:00] VITALS: BP 120/62; PULSE 68; RESP 18; TEMP 36.7; O2SAT 100
--- NOTE | 2020-05-07 15:07 | PCOTNOTE ---
Attempted to see patient this PM, however, patient declined to participate in any ADL task or UB exercise. Patient not seen for OT. Will continue plan of care tomorrow, 05/08/2020.
[2020-05-07] MEDS: ACETAMINOPHEN 325 MG TABLET 650 MG PO (15:28)
--- NOTE | 2020-05-07 16:23 | PM.IMPN ---
Progress Note: A&P Assessment and Plan (1) Acute renal failure: Qualifiers: Acute renal failure type: unspecified Qualified Code(s): N17.9 - Acute kidney failure, unspecified Code(s): N17.9 - Acute kidney failure, unspecified Status: Acute Assessment and Plan: looks to be all pre renal from Initial laboratory work. Urinalysis is benign. Renal sonogram. No obstruction. Holding GRAY-inhibitor and hold topical anti-inflammatories, creatinine 09/19/2019 was 0.9 And today has fallen to 1.4. urine was normal and culture grew Klebsiella but with renal function improving, asymptomatic bacteriuria will not be treated (2) Altered mental status: Qualifiers: Altered mental status type: somnolence Qualified Code(s): R40.0 - Somnolence Code(s): R41.82 - Altered mental status, unspecified Status: Acute Assessment and Plan: appears totally oriented present time but intermitant confusion, her assumed baseline (3) HTN (hypertension): Code(s): I10 - Essential (primary) hypertension Status: Acute Assessment and Plan: blood pressure fine without lisinopril continue to hold at discharge (4) Dementia: Code(s): F03.90 - Unspecified dementia without behavioral disturbance Status: Acute Assessment and Plan: mild and continue HS Seroquel (5) Cirrhosis of liver: Code(s): K74.60 - Unspecified cirrhosis of liver Status: Acute Assessment and Plan: history of such found on CT in the past. 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 no stress doses of steroids were given with blood pressure remaining stable Subjective Date/time seen: 05/07/20 16:23 Interval history: Date of visit 05/07. [age] y/o transferred from [facility] for evaluation elevated creatinine. Had no specific complaints. Creatinine has fallen with hydration still feels well without any complaints Exam Narrative: Exam Narrative: Blood pressure 120/62 pulse is 68 sat 100% on room air afebrile Pupils equal reactive light sclera anicteric Lungs clear no wheezing or consolidation CV regular rate rhythm Abdomen soft nontender no masses Extremities without edema distal pulses 2+ Neuro alert pleasant cooperative no focal deficits Objective Data Vital Signs Vital Signs: Vital Signs - 24 hr 05/06/20 22:00 05/07/20 06:00 05/07/20 08:00 Temperature 36.9 C 36.2 C L Pulse Rate 59 L 60 60 Respiratory Rate 20 20 20 Blood Pressure 142/62 H 126/68 Pulse Oximetry 98 100 100 05/07/20 14:00 Temperature 36.7 C Pulse Rate 68 Respiratory Rate 18 Blood Pressure 120/62 Pulse Oximetry 100 Intake/Output Intake/Output: Intake & Output 05/04/20 05/05/20 05/06/20 05/07/20 23:59 23:59 23:59 23:59 Intake Total 3150 3270 660 700 Output Total 363 257 0612 300 Balance 2849 2670 -640 400 Meds/Results Medications: Active Medications Generic Name Dose Route Start Last Admin Trade Name Freq PRN Reason Stop Dose Admin Acetaminophen 650 mg 05/04/20 09:21 05/07/20 15:28 Acetaminophen 325 Mg Tablet PO 650 mg Q6H PRN Administration Mild Pain (1-3) or Fever Aspirin 81 mg 05/04/20 08:00 05/07/20 10:30 Aspirin 81 Mg Chewable Tablet PO 81 mg DAILY@0800 [facility] Administration Azathioprine 25 mg 05/04/20 09:00 05/07/20 10:31 Azathioprine 25 Mg Tablet PO 25 mg QAM [facility] Administration Calcium Carbonate 200 mg 05/04/20 09:19 Calcium Carbonate (Tums) 500 Mg (200 Mg [place]
[2020-05-07 16:30] LABS: SARS-CoV-2 RNA PCR Negative
--- NOTE | 2020-05-10 11:57 | PM.DS ---
DS: Admitting Diagnosis Admitting Diagnosis Admitting Diagnosis: Acute Renal Failure DS: Discharge Diagnosis Discharge Diagnosis (1) Acute renal failure: Qualifiers: Acute renal failure type: unspecified Qualified Code(s): N17.9 - Acute kidney failure, unspecified Code(s): N17.9 - Acute kidney failure, unspecified Status: Acute Assessment and Plan: looks to be all pre renal from Initial laboratory work. Urinalysis is benign. Renal sonogram. No obstruction. Holding GRAY-inhibitor and hold topical anti-inflammatories, creatinine 09/19/2019 was 0.9 And fell to 1.4. urine was normal and culture grew Klebsiella but with renal function improving, asymptomatic bacteriuria will not be treated repeat BMP 7-10 days at [facility] (2) Altered mental status: Qualifiers: Altered mental status type: somnolence Qualified Code(s): R40.0 - Somnolence Code(s): R41.82 - Altered mental status, unspecified Status: Acute Assessment and Plan: appears totally oriented present time but intermitant confusion, her assumed baseline (3) HTN (hypertension): Code(s): I10 - Essential (primary) hypertension Status: Acute Assessment and Plan: blood pressure fine without lisinopril continue to hold at discharge, ? whether GRAY with low bp could have precipitated renal failure (4) Dementia: Code(s): F03.90 - Unspecified dementia without behavioral disturbance Status: Acute Assessment and Plan: mild and continue HS Seroquel (5) Cirrhosis of liver: Code(s): K74.60 - Unspecified cirrhosis of liver Status: Acute Assessment and Plan: history of such found on CT in the past. No ascites or overt signs of portal hypertension (6) Long-term use of immunosuppressant medication: Code(s): Z79.899 - Other [facility] (current) drug therapy Status: Acute Assessment and Plan: using the prednisone and Imuran which I assume is probably for her arthritis , and will continue. no stress doses of steroids were given with blood pressure remaining stable (7) Anemia: Code(s): D64.9 - Anemia, unspecified Status: Acute Assessment and Plan: hemoglobin fell as expected with hydration. Iron studies were compatible with anemia of chronic disease with the iron and TIBC both low. Hemoglobin 8.8 and discharged in stable DS: Summary Hospital Course Hospital Course: 84-year-old demented female admitted from long-term with routine lab work revealed elevated creatinine. Here with consistent IV hydration and holding her GRAY-inhibitor her creatinine fell from above 3 to 1.4 at discharge. Renal sonogram no obstruction. GRAY-inhibitor was held at discharge and she will have a repeat basic metabolic profile drawn in 7-10 days Time Spent with Patient Time attestation: Total time spent providing and/or coordinating discharge services:35 minutes Exam Narrative: Exam Narrative: condition on discharge blood pressure 120/62 pulse 68 afebrile lungs clear CV regular rate rhythm abdomen soft nontender no masses extremities without edema good distal pulses neuro she is alert pleasant cooperative no focal deficits she was up with assistance and taken a diet well and able to be discharged back to the long-term in stable condition Discharge Plan Discharge Attending physician on discharge: Pedro Barboza Consulting providers: ; Ashwin Garcia ; Refugio Ybarra Discharging Clinician: Pedro Barboza Patient Disposition: [facility] Activity: as tolerated Diet: regular Patient Instructions: Antibiotic Form, Clopidogrel (By mouth), Acute Kidney Injury (DC), Pain Management in Older Adults (DC) Stand Alone Forms: General Discharge Information Follow-up/Referrals: PHYSICIAN NOT ON STAFF,NONSTAFF [Primary Care Provider] - 2 Weeks Discharge Medications: Continued quetiapine 25 mg
== END 2020-05-07 19:55 ==
LOC: ANHED 18:03 → ANH3MEDSUR 19:10
PROVIDERS: Admitting Provider Internal Medicine; Emergency Provider Emergency Medicine; Visit Provider Internal Medicine
DX: N17.9 Acute kidney failure, unspecified (principal); Z20.828 Contact with and (suspected) exposure to other viral communicable diseases; R40.0 Somnolence; D64.9 Anemia, unspecified; F03.90 Unspecified dementia, unspecified severity, without behavioral disturbance, psychotic disturbance, mood disturbance, and anxiety; I10 Essential (primary) hypertension; K74.60 Unspecified cirrhosis of liver; M19.90 Unspecified osteoarthritis, unspecified site; Z87.891 Personal history of nicotine dependence; Z79.899 Other long term (current) drug therapy
CPT/HCPCS: 36415; 51701; 70450; 71045; 76775; 80048; 80053; 80069; 81003; 82728; 83540; 83550; 83605; 83735; 84484; 85025; 85610; 85730; 87077; 87086; 87088; 87186; 87635; 96360; 96361; 96372; 97110; 97162; 97166; 97530; 99285; A9270; C9803; G0378; J1644; J7120; J7512; U0003

== ENCOUNTER 2021-01-20 15:12 | Emergency (ER) | payer MEDICARE, MEDICAID, SELFPAY ==
--- NOTE | ~2021-01-20 | CT_ITS ---
EXAMINATION: CT brain wo con DATE: 01/20/2021 17:43 INDICATION: Confusion TECHNIQUE: Computed tomography (CT) of the head was performed without intravenous contrast. The dose- length product was 605.33 mGy-cm. Automated exposure control and iterative reconstruction technique w ere employed. COMPARISON: CT dated 05/03/2020 FINDINGS: Mild generalized atrophy. There is a chronic left lacunar infarction of the caudate nucleus . No ventriculomegaly or midline shift. There are scattered mild periventricular and subcortical whit e matter changes, most likely related to small vessel ischemic disease (microangiopathy). There is in tracranial atherosclerosis. There is mucosal thickening of the right maxillary, right sphenoid and et hmoid sinuses. Mastoids are pneumatized. No depressed skull fractures. IMPRESSION: 1. No acute intracranial abnormality. 2: Chronic left lacunar infarction. 3: Chronic age-related findings. 4: Moderate sinus disease. Reviewed, dictated and finalized at location A.
--- NOTE | ~2021-01-20 | CT_ITS ---
EXAMINATION: CT abdomen pelvis w con DATE: 01/20/2021 17:51 INDICATION: Nausea, vomiting and diarrhea TECHNIQUE: Computed tomography (CT) of the abdomen and pelvis was performed with 100 cc Omnipaque 350 intravenous contrast. The dose-length product was 559.64 mGy-cm. Automated exposure control and iter ative reconstruction technique were employed. COMPARISON: None. FINDINGS: Lung bases are unremarkable. Heart size normal. There is hiatal hernia. No significant pleu ral or pericardial effusion. There is cirrhosis of the liver. Status post cholecystectomy with expect ed prominence of the bile ducts. The spleen, adrenal glands are unremarkable. There is 2.8 cm cystic mass at the uncinate process of the pancreas. There are bilateral renal cysts. There is abnormal soft tissue of the rectum, suspicious for malignancy. Normal appendix. Moderate atherosclerosis without a neurysm. There is a hiatal hernia. No lymphadenopathy. No free air or free fluid. There is mild bladd er wall thickening which may be due to underdistention or cystitis. There is grade 2 spondylolisthesi s at L4-5. There is disc narrowing at L4-5 and L5-S1. There is multilevel facet hypertrophy. IMPRESSION: 1. Abnormal rectal mass, concerning for adenocarcinoma. Recommend GI consultation. 2: Cirrhosis of the liver. 3: Septated cystic mass of the uncinate process of the pancreas. The differential diagnosis includes pseudocyst, intraductal papillary mucinous neoplasm (IPMN), mucinous cystic neoplasm (MCN), and the l ess common serous cystadenoma and neuroendocrine tumor. 4: Mild bladder wall thickening, possibly due to underdistention versus cystitis. Correlate with urin alysis. Reviewed, dictated and finalized at location A. IMPRESSION: 1. Abnormal rectal mass, concerning for adenocarcinoma. Recommend GI consultati on. 2: Cirrhosis of the liver. 3: Septated cystic mass of the uncinate process of the pancreas. The differenti al diagnosis includes pseudocyst, intraductal papillary mucinous neoplasm (IPMN ), mucinous cystic neoplasm (MCN), and the less common serous cystadenoma and n euroendocrine tumor. 4: Mild bladder wall thickening, possibly due to underdistention versus cystiti s. Correlate with urinalysis.
--- NOTE | ~2021-01-20 | XR_ITS ---
XR shoulder LT min 2V 01/20/2021 18:01 Indication: Left shoulder pain after fall Procedure: 4 views left Comparison: shoulderchest x-ray dated 01/20/2021 and left shoulder series dated 05/30/2018 Findings: There is severe glenohumeral joint osteoarthritis. There are multiple new radiodensities in the left axillary soft tissues, possibly calcified lymph nodes or foreign bodies. Osteopenia. No acu te fracture is identified. Impression: 1: No acute fracture. Reviewed, dictated and finalized at location A. Impression: 1: No acute fracture.
--- NOTE | ~2021-01-20 | XR_ITS ---
EXAMINATION: XR chest 1V portable 01/20/2021 16:39 INDICATION: Transient alteration of awareness. Dementia. PROCEDURE: AP portable chest COMPARISON: Comparison to multiple prior studies sequentially, with oldest reviewed study dated 04/10. FINDINGS: The lungs are clear. The cardiomediastinal silhouette is within normal limits. There are no pleural effusions. There is no pneumothorax suspected. There is advanced degenerative change of the shoulders. IMPRESSION: 1: NO ACUTE CARDIOPULMONARY DISEASE. Reviewed, dictated and finalized at location A.
[2021-01-20 15:14] VITALS: BP 121/85; PULSE 75; RESP 14; TEMP 36.1; O2SAT 98
[2021-01-20 16:00] LABS: Basophils Percent Auto 0.7 % (0.2-1.2); Eosinophils Absolute Auto 0.4 K/mm3 (0-0.3); Eosinophils Percent Auto 7.1 % (0-4.4); Hematocrit 38.2 % (37.0-47.0); Hemoglobin 11.7 g/dL (12.0-15.0); Immature Granulocyte Absolute 0.01 K/mm3 (0.00-0.031); Immature Granulocyte Percent A 0.2 % (0-0.5); Lymphocytes Absolute Auto 1.17 K/mm3 (0.9-3.2); Lymphocytes Percent Auto 20.7 % (18.3-44.2); Mean Corpuscular HGB Conc 30.6 g/dl (32-36); Mean Corpuscular Hemoglobin 27.7 pg (26-34); Mean Corpuscular Volume 90.5 fl (80-100); Mean Platelet Volume 10.5 fl (7.4-10.4); Monocytes Absolute Auto 0.6 K/mm3 (0.1-0.6); Monocytes Percent Auto 10.3 % (2.6-8.5); Neutrophils Absolute Auto 3.4 K/mm3 (1.3-6.7); Platelet Count Result 184 k/mm3 (150-375); Red Blood Count 4.22 M/mm3 (4.2-5.4); Red Cell Distribution Width 13.2 % (11.5-14.5); White Blood Count 5.6 K/mm3 (4.5-10.0)
[2021-01-20 16:04] LABS: Add Urine Microscopic? YES; Appearance Urine Clear (Clear); Bacteria Urine 2+ /hpf; Bilirubin Urine Negative (Negative); Blood Urine Negative (Negative); Color Urine Yellow (Yellow); Glucose Urine UA Negative (Negative); Ketones Urine Negative (Negative); Leukocyte Esterase Ur Trace LEU/UL (Negative); Mucus Urine Rare /lpf; Nitrate Urine Negative (Negative); Protein Urine Negative (Negative); Specific Grav Ur 1.021 (1.001-1.035); Squamous Epithelial Cell Urine Few /hpf (Few); Urobilinogen Urine Negative mg/dL (<2.0); WBC Urine 0-3 /hpf
[2021-01-20 16:10] LABS: Alanine Aminotransferase 17 U/L (4-35); Albumin Level 3.9 g/dL (3.5-5.1); Alkaline Phosphatase 101 U/L (38-126); Anion Gap 10 mmol/L (8-16); Aspartate Amino Transferase 35 U/L (14-36); Bilirubin,Total 0.4 mg/dL (0.2-1.3); Blood Urea Nitrogen 33 mg/dL (7-17); Calcium 9.9 mg/dL (8.4-10.2); Carbon Dioxide 26 mmol/L (22-30); Chloride 104 mmol/L (98-107); Estimated CRCL calculation 29 ml/min; Estimated Glomerular Filt Rate 57; Glucose 95 mg/dL (65-105); Potassium 4.9 mmol/L (3.4-5.0); Sodium 140 mmol/L (137-145)
[2021-01-20 16:18] VITALS: BP 130/100; PULSE 64; RESP 12; O2SAT 98
--- NOTE | 2021-01-20 16:56 | ED.AMS ---
HPI - Altered Mental Status General Chief Complaint: Altered Mental Status Stated Complaint: uti Time Seen by Provider: 01/20/21 16:28 Source: family, EMS and RN notes reviewed Mode of arrival: EMS Limitations: altered mental status History of Present Illness HPI narrative: This is an 85 year old female who presents from [facility] for evaluation of altered mental status. Patient's daughter in law is currently at bedside. She reports patient has chronic confusion and she has intermittent agitation. She last saw patient 1 week ago and she reports she was doing well. She has been told by halfway staff that patient is not eating or wanting to do anything. She states patient has been hallucinating over the past several month. She often talks about seeing people. Nursing reports patient is currently on cipro for a UTI. Patient was crying on stretcher when brought in by EMS. She is oriented to self only. She complains of left shoulder pain and abdominal pain. Related Data Home Medications Medication Instructions Recorded Confirmed aspirin [Aspirin Low Dose] 81 mg PO DAILY #0 09/19/19 05/03/20 azathioprine 25 mg PO DAILY #0 09/19/19 05/07/20 calcium carbonate [Tums] 200 mg PO QID PRN 09/19/19 05/03/20 calcium carbonate-vitamin D3 1 tablet PO DAILY #0 09/19/19 05/03/20 [Oyster Shell Calcium-Vit D3] clopidogrel 75 mg PO DAILY #0 09/19/19 05/03/20 gabapentin 300 mg PO BID #0 09/19/19 05/03/20 lansoprazole 15 mg PO DAILY #0 09/19/19 05/03/20 latanoprost 1 drp OPHTHALMIC (EYE) DAILY #0 09/19/19 05/03/20 magnesium oxide 400 mg PO DAILY #0 09/19/19 05/03/20 prednisone 5 mg PO DAILY #0 09/19/19 05/03/20 quetiapine 12.5 mg PO BID #0 09/19/19 05/07/20 tramadol 50 mg PO HS #0 09/19/19 05/05/20 acetaminophen 650 mg PO ONCE PRN 05/05/20 05/05/20 cholecalciferol (vitamin D3) 25 mcg PO DAILY 05/05/20 05/05/20 diphenoxylate-atropine 2 tablet PO PRN PRN 05/07/20 05/07/20 Allergies Allergy/AdvReac Type Severity Reaction Status Date / Time No Known Allergies Allergy Verified 05/04/20 02:43 Review of Systems Review of Systems: All systems reviewed & are unremarkable except as noted in HPI and below PMFSH Past Medical History Medical History (Updated 01/21/21 @ 00:00 by Peter Perez) Arthritis Asthma Cataracts, bilateral HTN (hypertension) Rib fracture Tibia fracture Surgical History Surgical History No significant past surgical history Family History Family History (Updated 05/04/20 @ 13:56 by Pedro Barboza, ) Father , in his 60s and no definite cause No problems noted. Mother , in her 70s of unknown etiology No problems noted. Other Unknown family medical history Social History Social History (Updated 05/04/20 @ 13:57 by Pedro Barboza, ) Social History: lives in a halfway. She states that she has 10 children that are living and well Smoking packs per day: 0.5 Smoking cigarettes per day: 10.0 Years smoked: 2 Smoking pack-years: 1.00 Smoking status: Unknown if ever smoked Tobacco type: cigarettes Second hand tobacco smoke exposure: No Additional smoking assessment comments: STOPPED SMOKING MANY YRS. AGO Alcohol intake: unknown Drinks per week: 1 Substance use: unknown Gender identity (if verbalized by the patient): Female Spiritual care concerns: No Agree to blood products: Yes Exam Const: General: no acute distress and alert Other: patient oriented to person Eyes: EOM: EOMs intact bilaterally Resp: Effort & Inspection: normal respiratory effort and no retractions Auscultation: clear to auscultation bilaterally Cardio: Rate: regular rate Rhythm: regular rhythm Heart sounds: no murmurs GI: GI Palp: Yes Soft to palpation, Yes Tenderness to palpation present (GI) (LLQ), No Guarding due to palpation present (GI) and No Rigid du
[2021-01-20] MEDS: SODIUM CHLORIDE 0.9% IV 1,000 ML 999 ML IV CONT (17:12)
[2021-01-20 18:32] VITALS: BP 156/75; PULSE 67; RESP 12; O2SAT 98
[2021-01-20 18:51] LABS: Ammonia < 9 umol/L (9-30)
[2021-01-20 19:19] VITALS: BP 124/102; PULSE 80; RESP 14; O2SAT 98
[2021-01-20 20:13] VITALS: BP 154/85; PULSE 81; RESP 13; TEMP 36.8; O2SAT 97
[2021-01-20 21:30] VITALS: BP 172/85; PULSE 91; RESP 18; TEMP 37.2; O2SAT 95
== END 2021-01-20 21:45 ==
PROVIDERS: Emergency Medicine; Emergency Provider General Practice
DX: N39.0 Urinary tract infection, site not specified (principal); F03.90 Unspecified dementia, unspecified severity, without behavioral disturbance, psychotic disturbance, mood disturbance, and anxiety; K62.89 Other specified diseases of anus and rectum; M19.012 Primary osteoarthritis, left shoulder; J45.909 Unspecified asthma, uncomplicated; I10 Essential (primary) hypertension; Z87.891 Personal history of nicotine dependence; J32.9 Chronic sinusitis, unspecified; K74.60 Unspecified cirrhosis of liver
CPT/HCPCS: 36415; 51701; 70450; 71045; 73030; 74177; 80053; 81001; 82140; 85025; 96361; 96365; 99284; J0696; J7030; Q9967

== ENCOUNTER 2021-01-28 18:04 | Observation (INO) | payer MEDICARE, MEDICAID, SELFPAY ==
--- NOTE | ~2021-01-28 | CT_ITS ---
EXAMINATION: CT brain wo con EXAM DATE: 01/28/2021 20:06 INDICATION: Confusion, altered mental status. TECHNIQUE: Spiral CT of the head was performed without contrast. Axial, coronal and sagittal images were reviewed. The dose-length product (DLP) for this examination was 1059.33 mGy-cm. The exposure was tailored according to patient size, and iterative reconstruction (ASIR) was used as additional do se reduction technique. There is no prior study for comparison. FINDINGS: Study is limited due to patient motion. There is no acute intraparenchymal hemorrhage. No evidence of intraparenchymal brain mass lesion. No evidence of acute infarction. Please note that i nitial head CT has limited sensitivity for small or acute infarctions. There is mild periventricular and subcortical hypodensity, nonspecific but probably related to small vessel ischemic disease. Th ere is moderate prominence of the sulci and ventricles related to cerebral atrophy. There is intrac ranial carotid arteriosclerosis. There are no extra-axial collections. There is no mass effect or m idline shift. The orbits are unremarkable. Soft tissue is unremarkable. The visualized sinuses and mastoid air cells are well aerated. IMPRESSION: 1. No acute intracranial findings. 2. Chronic age related findings. Reviewed, dictated and finalized at location A.
[2021-01-28 18:00] VITALS: BP 138/85; PULSE 100; RESP 20; TEMP 36.1; O2SAT 99
--- NOTE | 2021-01-28 18:16 | ECG_ITS ---
Measurements Intervals [place] Rate: 98 P: 42 [place]: 141 QRS: -12 QRSD: 86 T: 47 QT: 362 QTc: 463 Interpretive Statements SINUS RHYTHM ATRIAL PREMATURE COMPLEX VOLTAGE CRITERIA FOR LVH BORDERLINE ST-T WAVE ABNORMALITY- INF/HIGH LAT LEADS BASELINE ARTIFACT- I, II, III, AVR, AVL, AVF, V1-V6 BORDERLINE ECG Electronically Signed On 01-29-2021 8:08:13 CDT by Daniel Vizcaino D.O.
[2021-01-28 18:33] VITALS: BP 125/71; PULSE 93; RESP 18; O2SAT 100
[2021-01-28 18:39] LABS: Basophils Absolute Auto 0.1 K/mm3 (0.0-0.1); Basophils Percent Auto 0.6 % (0.2-1.2); Eosinophils Absolute Auto 0.3 K/mm3 (0-0.3); Eosinophils Percent Auto 3.8 % (0-4.4); Hematocrit 39.9 % (37.0-47.0); Hemoglobin 12.5 g/dL (12.0-15.0); Immature Granulocyte Absolute 0.03 K/mm3 (0.00-0.031); Immature Granulocyte Percent A 0.3 % (0-0.5); Lymphocytes Absolute Auto 1.17 K/mm3 (0.9-3.2); Lymphocytes Percent Auto 13.6 % (18.3-44.2); Mean Corpuscular HGB Conc 31.3 g/dl (32-36); Mean Corpuscular Hemoglobin 27.8 pg (26-34); Mean Corpuscular Volume 88.9 fl (80-100); Mean Platelet Volume 10.1 fl (7.4-10.4); Monocytes Absolute Auto 0.9 K/mm3 (0.1-0.6); Monocytes Percent Auto 9.9 % (2.6-8.5); Neutrophils Absolute Auto 6.2 K/mm3 (1.3-6.7); Neutrophils Percent Auto 71.8 % (45.5-73.1); Platelet Count Result 233 k/mm3 (150-375); Red Blood Count 4.49 M/mm3 (4.2-5.4); Red Cell Distribution Width 12.9 % (11.5-14.5); White Blood Count 8.6 K/mm3 (4.5-10.0)
[2021-01-28 18:43] LABS: Add Urine Microscopic? YES; Appearance Urine Clear (Clear); Bacteria Urine Trace /hpf; Bilirubin Urine Negative (Negative); Blood Urine Negative (Negative); Color Urine Yellow (Yellow); Glucose Urine UA Negative (Negative); Ketones Urine 1+ mg/dL (Negative); Leukocyte Esterase Ur Negative LEU/UL (Negative); Mucus Urine Rare /lpf; Nitrate Urine Negative (Negative); Protein Urine Negative (Negative); RBC Urine 0-2 /hpf (0-2); Specific Grav Ur 1.021 (1.001-1.035); Squamous Epithelial Cell Urine Rare /hpf (Few); Urobilinogen Urine Negative mg/dL (<2.0); WBC Urine 0-3 /hpf
[2021-01-28 18:48] LABS: INR 1.1; Prothrombin Time 14.3 Seconds (11.1-14.7)
[2021-01-28 19:03] LABS: Alanine Aminotransferase 17 U/L (4-35); Alkaline Phosphatase 113 U/L (38-126); Anion Gap 13 mmol/L (8-16); Aspartate Amino Transferase 34 U/L (14-36); Bilirubin,Total 0.8 mg/dL (0.2-1.3); Blood Urea Nitrogen 30 mg/dL (7-17); Calcium 9.7 mg/dL (8.4-10.2); Carbon Dioxide 21 mmol/L (22-30); Chloride 109 mmol/L (98-107); Estimated Glomerular Filt Rate > 60; Glucose 87 mg/dL (65-110); Potassium 3.8 mmol/L (3.4-5.0); Sodium 143 mmol/L (137-145)
[2021-01-28 19:11] VITALS: BP 138/65; PULSE 91; RESP 18
--- NOTE | 2021-01-28 19:36 | ED.GENADULT ---
HPI - General Adult General Chief complaint: Weakness Stated complaint: unable to eat Time Seen by Provider: 01/28/21 18:11 Source: EMS History of Present Illness HPI narrative: Patient is a 85 y/o female sent from [place] for weakness, not eating or drinking for a while. There is no known alleviating or exacerbating factor. Patient is poor historian and unable to provide additional history. Of note, patient had recent CT which showed rectal mass, liver cirrhosis and cystic mass of pancreas. Related Data Home Medications Medication Instructions Recorded Confirmed aspirin [Aspirin Low Dose] 81 mg PO DAILY #0 09/19/19 05/03/20 azathioprine 25 mg PO DAILY #0 09/19/19 05/07/20 calcium carbonate-vitamin D3 1 tablet PO DAILY #0 09/19/19 05/03/20 [Oyster Shell Calcium-Vit D3] clopidogrel 75 mg PO DAILY #0 09/19/19 05/03/20 gabapentin 300 mg PO BID #0 09/19/19 05/03/20 lansoprazole 15 mg PO DAILY #0 09/19/19 05/03/20 latanoprost 1 drp OPHTHALMIC (EYE) DAILY #0 09/19/19 05/03/20 magnesium oxide 400 mg PO DAILY #0 09/19/19 05/03/20 prednisone 5 mg PO DAILY #0 09/19/19 05/03/20 acetaminophen 650 mg PO ONCE PRN 05/05/20 05/05/20 cholecalciferol (vitamin D3) 25 mcg PO DAILY 05/05/20 05/05/20 diphenoxylate-atropine [Lomotil] 1 tablet PO TID PRN 01/28/21 gabapentin 300 mg PO BID 01/28/21 hydrocodone-acetaminophen 1 tablet PO Q6H PRN 01/28/21 lorazepam [Ativan] 01/28/21 meloxicam 7.5 mg PO DAILY 01/28/21 nystatin TOPICAL 01/28/21 quetiapine [Seroquel] 25 mg PO BID 01/28/21 Allergies Allergy/AdvReac Type Severity Reaction Status Date / Time No Known Allergies Allergy Verified 01/28/21 18:21 Review of Systems Review of Systems: ROS unobtainable: Yes unobtainable due to mental status PMFSH Past Medical History Medical History Arthritis Asthma Cataracts, bilateral HTN (hypertension) Rib fracture Tibia fracture Surgical History Surgical History No significant past surgical history Family History Family History Father , in his 60s and no definite cause No problems noted. Mother , in her 70s of unknown etiology No problems noted. Other Unknown family medical history Social History Social History Social History: lives in a senior care. She states that she has 10 children that are living and well Smoking packs per day: 0.5 Smoking cigarettes per day: 10.0 Years smoked: 2 Smoking pack-years: 1.00 Smoking status: Unknown if ever smoked Tobacco type: cigarettes Second hand tobacco smoke exposure: No Additional smoking assessment comments: STOPPED SMOKING MANY YRS. AGO Alcohol intake: unknown Drinks per week: 1 Substance use: unknown Gender identity (if verbalized by the patient): Female Spiritual care concerns: No Agree to blood products: Yes Exam Const: General: no acute distress and ill appearing Nutritional Appearance: thin HENMT: Head: normocephalic Ears: external ears normal General nose exam: Normal external nose present Eyes: General: appearance normal, both eyes and all related structures Conjunctivae: conjunctivae normal Neck: Neck: normal visual inspection and full ROM Chest: Chest palpation & inspection: normal inspection of the chest and no tenderness Resp: Effort & Inspection: normal respiratory effort Auscultation: clear to auscultation bilaterally Cardio: Rate: regular rate Rhythm: regular rhythm GI: GI Palp: No abdominal tenderness and Yes Soft to palpation Skin: General skin exam: normal color and turgor normal Neuro: General: confusion and other (does not follow commands or answer questions) Cognition (Neuro): abnormal cognition Extrem: General: normal to inspection, full ROM and no pedal edema C
--- NOTE | 2021-01-28 23:18 | ADMGEN ---
This patient, Harika Orantes, was admitted to [facility] Surg Room 315-02 at 2315. Patient/family oriented to hospital policies and general routines including ID bracelet, bed and alarms, visiting hours, pain management, procedures, bathroom and other care routines, personal items, smoking policy, room service/diet, and visiting hours. Information on how to activate the Rapid Response Team has been discussed. Patient/Family are encouraged to report perceived risks to care and to ask questions if they do not understand what they are told or what they should do.
[2021-01-28 23:53] VITALS: BP 129/76; PULSE 116; RESP 18; TEMP 37; O2SAT 97
[2021-01-29] MEDS: SODIUM CHLORIDE 0.9% IV 1,000 ML 125 ML IV CONT ×2 (00:45→12:29)
[2021-01-29 01:19] VITALS: BMI 22.9
[2021-01-29 06:00] VITALS: BP 162/82; PULSE 88; RESP 18; TEMP 36.6; O2SAT 100
--- NOTE | 2021-01-29 08:26 | PM.IMHP ---
H&P: HPI History of Present Illness Date/Time: 01/29/21 08:26 Chief Complaint: Weakness Narrative: This is an 85 year old woman with history of dementia with agitation, HTN, arthritis, who presented to the ER via EMS from [facility] with complaints of failure to thrive. The patient was otherwise independent walking around and just needing assistance with showering in December 2020 and eating cheeseburgers brought by her son. The patient was treated for a urinary tract infection at her long-term in early January 2021. the patient came to the emergency room on 01/20/2021 for altered mental status, increased hallucinations and seeing people as per ER noted. At that time she was not wanting to eat, drink or do anything. her entire workup which included labs, urinalysis, chest x-ray, CT head were all within normal limits with no acute signs of any type of infection. She did have a CT abdomen pelvis which was showing abnormal rectal mass concerning for adenocarcinoma, liver cirrhosis, and septated cystic mass of the uncinate process of the pancreas. she was discharged back to her long-term to continue oral antibiotics for her urinary tract infection. The patient continued to have symptoms so she was taken to [facility] in [place] for further workup and evaluation. Per the patient's son Prabhakar, he stated that she possibly had stool impaction, he was told she might have gastric cancer, and she wishes recently brought back to her long-term. the patient was then brought in last night because she continues to not eat, refuses to drink, and is intermittently yelling out in pain when you touch her. The patient is a poor historian secondary to dementia so history was obtained by long-term staff and her son Prabhakar. Code Status- Full Code REFUGIO- Prabhakar Orantes PCP- Dr. Sexton Review of Systems Review of Systems: ROS unobtainable: Yes unobtainable due to medical condition PMFSH Past Medical History Medical History Arthritis Asthma Cataracts, bilateral HTN (hypertension) Rib fracture Tibia fracture Surgical History Surgical History No significant past surgical history Family History Family History Father , in his 60s and no definite cause No problems noted. Mother , in her 70s of unknown etiology No problems noted. Other Unknown family medical history Social History Social History (Updated 01/30/21 @ 06:00 by Leni Navarro PA-C) Social History: lives in a long-term. She states that she has 10 children Smoking packs per day: 0.5 Smoking cigarettes per day: 10.0 Years smoked: 2 Smoking pack-years: 1.00 Smoking status: Former smoker Second hand tobacco smoke exposure: No Additional smoking assessment comments: STOPPED SMOKING MANY YRS. AGO Alcohol intake: unknown Drinks per week: 1 Substance use: unknown Living arrangements: long-term Occupation/Education: retired Gender identity (if verbalized by the patient): Female Sexual Orientation (if Verbalized by the Patient): Straight or Heterosexual Spiritual care concerns: No Agree to blood products: Yes Meds Home Medications and Allergies Home Medications Medication Instructions Recorded Confirmed Type aspirin [Aspirin Low Dose] 81 mg PO DAILY #0 09/19/19 01/28/21 History azathioprine 25 mg PO DAILY #0 09/19/19 01/28/21 History calcium carbonate-vitamin D3 1 tablet PO DAILY PRN #0 09/19/19 01/28/21 History [Oyster Shell Calcium-Vit D3] clopidogrel 75 mg PO DAILY #0 09/19/19 01/28/21 History gabapentin 300 mg PO BID #0 09/19/19 01/28/21 History lansoprazole 15 mg PO DAILY #0 09/19/19 01/28/21 History latanoprost 1 drp OPHTHALMIC (EYE) DAILY #0 09/19/19 01/28/21 History magnesium oxide
[2021-01-29 08:42] LABS: Hematocrit 34.7 % (37.0-47.0); Hemoglobin 10.8 g/dL (12.0-15.0); Mean Corpuscular HGB Conc 31.1 g/dl (32-36); Mean Corpuscular Hemoglobin 27.6 pg (26-34); Mean Corpuscular Volume 88.7 fl (80-100); Mean Platelet Volume 10.4 fl (7.4-10.4); Platelet Count Result 215 k/mm3 (150-375); Red Blood Count 3.91 M/mm3 (4.2-5.4); White Blood Count 7.6 K/mm3 (4.5-10.0)
[2021-01-29 08:49] LABS: Lactic Acid Reflex 0.8 mmol/L (0.7-2.1)
[2021-01-29 08:50] LABS: Alanine Aminotransferase 15 U/L (4-35); Albumin Level 3.4 g/dL (3.5-5.1); Alkaline Phosphatase 100 U/L (38-126); Anion Gap 10 mmol/L (8-16); Aspartate Amino Transferase 30 U/L (14-36); Bilirubin,Total 0.7 mg/dL (0.2-1.3); Blood Urea Nitrogen 31 mg/dL (7-17); Calcium 9.1 mg/dL (8.4-10.2); Carbon Dioxide 18 mmol/L (22-30); Chloride 114 mmol/L (98-107); Estimated CRCL calculation 32 ml/min; Estimated Glomerular Filt Rate > 60; Glucose 89 mg/dL (65-110); Potassium 3.8 mmol/L (3.4-5.0); Sodium 142 mmol/L (137-145)
[2021-01-29 10:09] VITALS: BMI 22.9
[2021-01-29 11:20] VITALS: O2SAT 93
[2021-01-29 14:00] VITALS: BP 137/84; PULSE 105; RESP 16; TEMP 36.4; O2SAT 100
[2021-01-29 20:00] VITALS: PULSE 105; RESP 16; O2SAT 100
[2021-01-29 22:00] VITALS: BP 126/82; PULSE 102; RESP 18; TEMP 36.6; O2SAT 100
[2021-01-30] MEDS: SODIUM CHLORIDE 0.9% IV 1,000 ML 60 ML IV CONT (05:59)
[2021-01-30 06:00] VITALS: BP 134/78; PULSE 72; RESP 20; TEMP 36.3; O2SAT 96
[2021-01-30 10:59] LABS: Basophils Absolute Auto 0.1 K/mm3 (0.0-0.1); Basophils Percent Auto 0.8 % (0.2-1.2); Eosinophils Absolute Auto 0.5 K/mm3 (0-0.3); Eosinophils Percent Auto 6.9 % (0-4.4); Hematocrit 35.1 % (37.0-47.0); Hemoglobin 11.1 g/dL (12.0-15.0); Immature Granulocyte Absolute 0.01 K/mm3 (0.00-0.031); Immature Granulocyte Percent A 0.2 % (0-0.5); Lymphocytes Absolute Auto 0.88 K/mm3 (0.9-3.2); Lymphocytes Percent Auto 13.2 % (18.3-44.2); Mean Corpuscular HGB Conc 31.6 g/dl (32-36); Mean Corpuscular Hemoglobin 27.8 pg (26-34); Mean Platelet Volume 10.6 fl (7.4-10.4); Monocytes Absolute Auto 0.6 K/mm3 (0.1-0.6); Monocytes Percent Auto 8.4 % (2.6-8.5); Neutrophils Absolute Auto 4.7 K/mm3 (1.3-6.7); Neutrophils Percent Auto 70.5 % (45.5-73.1); Platelet Count Result 215 k/mm3 (150-375); Red Blood Count 3.99 M/mm3 (4.2-5.4); Red Cell Distribution Width 12.9 % (11.5-14.5); White Blood Count 6.7 K/mm3 (4.5-10.0)
[2021-01-30] MEDS: PANTOPRAZOLE SODIUM IV 40 MG VIAL IV PUSH (11:04)
[2021-01-30 11:11] LABS: Alanine Aminotransferase 14 U/L (4-35); Albumin Level 3.5 g/dL (3.5-5.1); Alkaline Phosphatase 101 U/L (38-126); Anion Gap 8 mmol/L (8-16); Aspartate Amino Transferase 28 U/L (14-36); Bilirubin,Total 0.7 mg/dL (0.2-1.3); Blood Urea Nitrogen 24 mg/dL (7-17); Calcium 9.4 mg/dL (8.4-10.2); Carbon Dioxide 20 mmol/L (22-30); Chloride 116 mmol/L (98-107); Estimated CRCL calculation 32 ml/min; Estimated Glomerular Filt Rate > 60; Glucose 78 mg/dL (65-110); INR 1.2; Lipase 90 U/L (23-300); Potassium 3.9 mmol/L (3.4-5.0); Prothrombin Time 15.1 Seconds (11.1-14.7); Sodium 144 mmol/L (137-145)
--- NOTE | 2021-01-30 15:59 | WPDGICN ---
Assessment and Plan Assessment and plan (1) Malnutrition: Code(s): E46 - Unspecified protein-calorie malnutrition Status: Acute Assessment and Plan: she has not been eating last several days for unknown reason, she is confused and has dementia noted that she has cirrhosis- in the setting placement of G-tube is relatively contraindicated and with her severe dementia I recommend against one. (2) Rectal mass: Code(s): K62.89 - Other specified diseases of anus and rectum Status: Acute Assessment and Plan: could be malignancy, family leaning towards comfort care (3) Cirrhosis: Qualifiers: Ascites presence: without ascites Hepatic cirrhosis type: unspecified hepatic cirrhosis Qualified Code(s): K74.60 - Unspecified cirrhosis of liver Code(s): K74.60 - Unspecified cirrhosis of liver Status: Acute Assessment and Plan: no need of further investigation if family decides hospice (4) Failure to thrive: Status: Acute (5) Weakness: Code(s): R53.1 - Weakness Status: Acute (6) Altered mental status: Qualifiers: Altered mental status type: somnolence Qualified Code(s): R40.0 - Somnolence Code(s): R41.82 - Altered mental status, unspecified Status: Acute Assessment and Plan: with dementia and agitation GI Consult Note Consult date/time: 01/30/21 15:59 Reason for consult: malnutrition, weight loss, rectal mass, cirrhosis HPI: Harika Orantes is a 85 year old female with advanced dementia, HTN who was brought to the ER via EMS from [facility] with complaints of failure to thrive and weight loss. Recently she was treated for UTI and also recent CT scan with several abnormal findings (reviewed)- abnormal rectal mass concerning for adenocarcinoma, liver cirrhosis, and septated cystic mass of the uncinate process of the pancreas. She is here with not eating for almost 2 weeks, having hallucinations, refusing to drink, and intermittently yelling out. I could not get any history from her. No records of recent scopes. Review of Systems Review of Systems: ROS unobtainable: Yes unobtainable due to medical condition and unobtainable due to mental status PMFSH Past Medical History Medical History (Updated 01/30/21 @ 16:04 by Ramy Brink MD) Arthritis Asthma Cataracts, bilateral HTN (hypertension) Malnutrition Rib fracture Tibia fracture Surgical History Surgical History No significant past surgical history Family History Family History Father , in his 60s and no definite cause No problems noted. Mother , in her 70s of unknown etiology No problems noted. Other Unknown family medical history Social History Social History (Updated 01/30/21 @ 06:00 by Leni Navarro PA-C) Social History: lives in a alf. She states that she has 10 children Smoking packs per day: 0.5 Smoking cigarettes per day: 10.0 Years smoked: 2 Smoking pack-years: 1.00 Smoking status: Former smoker Second hand tobacco smoke exposure: No Additional smoking assessment comments: STOPPED SMOKING MANY YRS. AGO Alcohol intake: unknown Drinks per week: 1 Substance use: unknown Living arrangements: alf Occupation/Education: retired Gender identity (if verbalized by the patient): Female Sexual Orientation (if Verbalized by the Patient): Straight or Heterosexual Spiritual care concerns: No Agree to blood products: Yes Meds Home Medications and Allergies Home Medications Medication Instructions Recorded Confirmed Type aspirin [Aspirin Low Dose] 81 mg PO DAILY #0 09/19/19 01/28/21 History azathioprine 25 mg PO DAILY #0 09/19/19 01/28/21 History calcium carbonate-vitamin D3 1 tablet PO DAILY PRN #0
--- NOTE | 2021-01-30 16:36 | PM.DS ---
DS: Admitting Diagnosis Admitting Diagnosis Admitting Diagnosis: Failure to thrive DS: Discharge Diagnosis Discharge Diagnosis (1) Failure to thrive: Status: Acute Assessment and Plan: This is an 85 year old woman with history of dementia with agitation, HTN, arthritis, who presented to the ER via EMS from [facility] with complaints of failure to thrive, not eating or drinking and having worsening confusion. Initial vitals showed her blood pressure was stable at 130 8/85, heart rate 100, afebrile, normal oxygen saturation on room air Initial labs showed normal CBC with differential, normal coag panel, normal creatinine 1.0, elevated BUN showing some slight dehydration. Normal LFTs. Urinalysis showing 1+ ketones otherwise no acute signs of infection. CT head showed no acute intracranial findings, chronic age-related findings. The patient was admitted into the hospital for failure to thrive, IV fluid hydration and further monitoring. During the patient's hospitalization she continued to be confused with dementia, not able to eat or drink, Crying out in pain when you touch her and appears very weak and fatigued. Much time was spent talking to the patient's family, REFUGIO Rad[place], other sons about options. The patient's family wanted her to receive a feeding tube to help with nutrition. I talked to Dr. Gabe OJEDA about the patient's medical condition and history of cirrhosis. He told me that she is not able to get a feeding tube because of cirrhosis, Because the risks of bleeding, infection, but he could of performed EGD and colonoscopy due to her symptoms and find out if she has an underlying cancer. After further discussion with the family it was decided to make the patient hospice and she will remain inpatient with [facility]. the patient was discharged to hospice. 60 minutes of advanced care planning was been talking to the patient's son Prabhakar HUFF, any family meeting with 5 people, care coordination, the [facility], talking to the nurse, reviewing labs. (2) Weakness: Code(s): R53.1 - Weakness Status: Acute Assessment and Plan: Due to failure to thrive. See above. (3) Cirrhosis: Qualifiers: Ascites presence: without ascites Hepatic cirrhosis type: unspecified hepatic cirrhosis Qualified Code(s): K74.60 - Unspecified cirrhosis of liver Code(s): K74.60 - Unspecified cirrhosis of liver Status: Acute Assessment and Plan: Does not appear volume overloaded at this time. Normal LFTs. (4) Anemia: Code(s): D64.9 - Anemia, unspecified Status: Acute Assessment and Plan: H&H is stable. No acute signs of bleeding at this time. (5) Dementia: Code(s): F03.90 - Unspecified dementia without behavioral disturbance Status: Acute Assessment and Plan: Alert but not oriented. Unable to give me any history. DS: Summary Hospital Course Hospital Course: See above Status at Discharge Cognitive/behavioral status at discharge: Stable, improved. Time Spent with Patient Time attestation: Total time spent providing and/or coordinating discharge services: 60 Time spent: Greater than 30 minutes Exam Narrative: Exam Narrative: General: 85-year-old cachectic AA woman laying in bed on her right side, intermittently moaning in discomfort and crying during my conversation with her. Appears uncomfortable at times. In no respiratory distress acute distress. HEENT: Mucus membranes dry, lips dry. Gold rims on her front teeth. Atraumatic. Skin: Dry skin. No jaundice or cyanosis. Good skin turgor. Respiratory: Tenderness to even light palpation of her left chest wall, she s
== END 2021-01-30 17:45 | disposition hospice, inpatient (51) ==
LOC: ANHED 22:00 → ANH3MEDSUR 22:33
PROVIDERS: Physician Assistant; Admitting Provider Internal Medicine; Emergency Provider Emergency Medicine; PCP Internal Medicine; Visit Provider Family Medicine
DX: R62.7 Adult failure to thrive (principal); R53.1 Weakness; D64.9 Anemia, unspecified; E46 Unspecified protein-calorie malnutrition; F03.90 Unspecified dementia, unspecified severity, without behavioral disturbance, psychotic disturbance, mood disturbance, and anxiety; I10 Essential (primary) hypertension; J45.909 Unspecified asthma, uncomplicated; K62.89 Other specified diseases of anus and rectum; K74.60 Unspecified cirrhosis of liver; M19.90 Unspecified osteoarthritis, unspecified site; Z68.23 Body mass index [BMI] 23.0-23.9, adult; Z87.891 Personal history of nicotine dependence
CPT/HCPCS: 36415; 51701; 70450; 80053; 81001; 83605; 83690; 85025; 85027; 85610; 93005; 96361; 96374; 96375; 99285; C9113; G0378; J0131; J7030

== ENCOUNTER 2021-01-30 16:45 | HOS | payer OTHER, MEDICARE, MEDICAID, SELFPAY ==
[2021-01-30 18:40] VITALS: BMI 22.9
--- NOTE | 2021-01-30 18:49 | PM.IMHP ---
H&P: HPI History of Present Illness Date/Time: 01/30/21 18:49 Chief Complaint: Uncontrolled agitation and restlessness Narrative: 85-year-old female resident of [facility] with a history of dementia was in her usual state of health walking about the [facility] and eating fairly well up through December of 2020. In early January she began declining, walking last, eventually not walking at all. Her appetite was poor she refused to eat. She was brought [place] emergency room and treated for urinary tract infection with Klebsiella pneumonia. CT of the abdomen suggested cirrhosis and rectal mass. She continued to have a poor appetite. She was evaluated a [facility] and was Treated for fecal impaction and told she might have stomach cancer although no records are available. She was [facility] back to the [facility]. One stair she continued to decline with poor intake increased confusion and restlessness. She was brought [facility] on January 29 due to continued weakness restlessness And poor appetite. She was restless and anxious. Her son who is power of county attorney did not wish to pursue feeding tube or other life-prolonging measures given her advanced age and dementia. She was therefore admitted to inpatient hospice service for control of her symptoms of agitation and restlessness. Review of Systems Review of Systems: ROS unobtainable: Yes unobtainable due to medical condition PMFSH Past Medical History Medical History Arthritis Asthma Cataracts, bilateral HTN (hypertension) Malnutrition Rib fracture Tibia fracture Surgical History Surgical History No significant past surgical history Family History Family History Father , in his 60s and no definite cause No problems noted. Mother , in her 70s of unknown etiology No problems noted. Other Unknown family medical history Social History Social History (Updated 01/30/21 @ 18:50 by Gopal Guadarrama MD) Social History: lives in a [facility], has 10 children Smoking packs per day: 0.5 Smoking cigarettes per day: 10.0 Years smoked: 2 Smoking pack-years: 1.00 Smoking status: Former smoker Second hand tobacco smoke exposure: No Additional smoking assessment comments: STOPPED SMOKING MANY YRS. AGO Alcohol intake: unknown Drinks per week: 1 Substance use: unknown Living arrangements: [facility] Occupation/Education: retired Gender identity (if verbalized by the patient): Female Spiritual care concerns: No Agree to blood products: Yes Meds Home Medications and Allergies Home Medications Medication Instructions Recorded Confirmed Type aspirin [Aspirin Low Dose] 81 mg PO DAILY #0 09/19/19 01/28/21 History azathioprine 25 mg PO DAILY #0 09/19/19 01/28/21 History calcium carbonate-vitamin D3 1 tablet PO DAILY PRN #0 09/19/19 01/28/21 History [Oyster Shell Calcium-Vit D3] clopidogrel 75 mg PO DAILY #0 09/19/19 01/28/21 History gabapentin 300 mg PO BID #0 09/19/19 01/28/21 History lansoprazole 15 mg PO DAILY #0 09/19/19 01/28/21 History latanoprost 1 drp OPHTHALMIC (EYE) DAILY #0 09/19/19 01/28/21 History magnesium oxide 400 mg PO DAILY #0 09/19/19 01/28/21 History acetaminophen 650 mg PO ONCE PRN 05/05/20 01/28/21 History cholecalciferol (vitamin D3) 25 mcg PO BID 05/05/20 01/28/21 History diphenoxylate-atropine [Lomotil] 1 tablet PO TID PRN 01/28/21 01/28/21 History hydrocodone-acetaminophen 1 tablet PO TID PRN 01/28/21 01/28/21 History lorazepam [Ativan] 0.5 mg PO BID PRN 01/28/21 01/28/21 History meloxicam 7.5 mg PO DAILY 01/28/21 01/28/21 History nystatin 1 applic TOPICAL DAILY 01/28/21 01/28/21 History prednisone 2 mg PO DAILY 01/28/21 01/28/21 History quetiapine [Seroquel] 25 mg PO BID 01/28/21 01/28/21 Histo
[2021-01-30] MEDS: MORPHINE SULFATE INJ (*CRX) 50 MG in SODIUM CHLORIDE 0.9% IV 95 ML IV CONT (19:57)
[2021-01-30 20:00] VITALS: BP 129/83; PULSE 87; RESP 20; TEMP 36.7; O2SAT 99
[2021-01-30] MEDS: LORazepam INJ (*CRX) 2 MG/ML VIAL 1 MG IV PUSH (20:31)
[2021-01-30] MEDS: MORPHINE SULFATE (*CRX) 2 MG/ML INJ 1 MG IV PUSH (20:32)
[2021-01-31] MEDS: MORPHINE SULFATE (*CRX) 2 MG/ML INJ 1 MG IV PUSH ×2 (00:23→03:45)
[2021-01-31] MEDS: LORazepam INJ (*CRX) 2 MG/ML VIAL 1 MG IV PUSH (03:44)
--- NOTE | 2021-01-31 07:47 | PC.NURSE ---
Patient was very guarded, yelled, and resisted care and all touching from RN. Made two attempts to insert a johnston catheter with no success. Patient was incontinent of bowel and bladder. After IV change, she appeared much more peaceful. I presume the previous IV was occluded and didn't provide the morphine she was supposed to be receiving.
[2021-01-31 14:00] VITALS: BP 127/61; PULSE 99; RESP 20; TEMP 37.1; O2SAT 97
[2021-01-31] MEDS: MORPHINE SULFATE (*CRX) 2 MG/ML INJ IV PUSH (14:26)
[2021-01-31] MEDS: MORPHINE SULFATE INJ (*CRX) 50 MG in SODIUM CHLORIDE 0.9% IV 95 ML IV CONT (18:35)
[2021-02-01] MEDS: GLYCOPYRROLATE INJ (*SP) 0.2 MG/ML VIAL 0.1 MG IV PUSH ×2 (03:15→06:09)
[2021-02-01 07:27] VITALS: BP 129/67; PULSE 149; RESP 16; TEMP 37; O2SAT 84
--- NOTE | 2021-02-01 10:42 | PM.IMPN ---
Progress Note: A&P Assessment and Plan (1) Palliative care by specialist: Code(s): Z51.5 - Encounter for palliative care Status: Acute Assessment and Plan: Inpatient hospice criteria met due to uncontrolled restlessness and agitation requiring continuous IV narcotic for control 01/31 Increase morphine from 0.5mg/hr to 1mg/hr with 2mg q 2h prn remainder of palliative regimen as ordered (2) Dementia: Qualifiers: Dementia type: Alzheimer's Alzheimer's disease onset: late-onset Dementia behavioral disturbance: with behavioral disturbance Qualified Code(s): G30.1 - Alzheimer's disease with late onset; F02.81 - Dementia in other diseases classified elsewhere with behavioral disturbance Code(s): F03.90 - Unspecified dementia without behavioral disturbance Status: Acute (3) Malnutrition: Qualifiers: Malnutrition type: protein-calorie malnutrition Protein-calorie malnutrition severity: mild Qualified Code(s): E44.1 - Mild protein-calorie malnutrition Code(s): E46 - Unspecified protein-calorie malnutrition Status: Acute (4) Cirrhosis: Qualifiers: Ascites presence: without ascites Hepatic cirrhosis type: unspecified hepatic cirrhosis Qualified Code(s): K74.60 - Unspecified cirrhosis of liver Code(s): K74.60 - Unspecified cirrhosis of liver Status: Acute (5) Rectal mass: Code(s): K62.89 - Other specified diseases of anus and rectum Status: Acute Subjective Date/time seen: 01/31/21 13:00 Interval history: TelePC visit due to COVID-19 with hospice nurse Jero at bedside. Patient noted to be grimacing. Review of Systems Review of Systems: ROS unobtainable: Yes unobtainable due to medical condition Exam Narrative: Exam Narrative: Grimacing noted by singing teacher Objective Data Vital Signs Vital Signs: Vital Signs - 24 hr 01/31/21 14:00 02/01/21 07:27 Temperature 98.7 F 98.6 F Pulse Rate 99 149 H Respiratory Rate 20 16 Blood Pressure 127/61 129/67 Pulse Oximetry 97 84 L Intake/Output Intake/Output: Intake & Output 01/29/21 01/30/21 01/31/21 02/01/21 23:59 23:59 23:59 23:59 Intake Total 28 Output Total 125 Balance -97 Meds/Results Medications: Active Medications Generic Name Dose Route Start Last Admin Trade Name Freq PRN Reason Stop Dose Admin Artificial Tears 1 - 2 drop 01/30/21 20:41 Artificial Tears Ophth Soln 15 Ml Bottle EACH EYE Q12HR PRN Dry Eye(s) Bisacodyl 10 mg 01/30/21 19:00 Bisacodyl 10 Mg Suppository RECTAL DAILY PRN Constipation Glycopyrrolate 0.1 mg 01/30/21 19:03 02/01/21 06:09 Glycopyrrolate Inj (*Sp) 0.2 Mg/Ml Vial IV PUSH 0.1 mg Q4H PRN Administration SECRETIONS Morphine Sulfate 50 mg/ Sodium 100 mls @ 2 mls/hr 01/30/21 19:00 01/31/21 18:35 Chloride IV CONT 1 mg/hr .Q24H JOSE MARIA 2 mls/hr Administration 1 MG/HR Lorazepam 1 mg 01/30/21 19:01 01/31/21 03:44 Lorazepam Inj (*Crx) 2 Mg/Ml Vial IV PUSH 1 mg Q6H PRN Administration Anxiety Morphine Sulfate 2 mg 01/31/21 12:41 01/31/21 14:26 Morphine Sulfate (*Crx) 2 Mg/Ml Inj IV PUSH 2 mg Q2H PRN Administration Pain Prochlorperazine Edisylate 10 mg 01/30/21 19:04 Prochlorperazine Edisylate 10 Mg/2 Ml Vial IV PUSH Q6H PRN Nausea And Vomiting
[2021-02-01 13:45] VITALS: BP 72/47; PULSE 114; RESP 18; TEMP 37.6; O2SAT 86
--- NOTE | 2021-02-05 15:17 | PM.DDS ---
Discharge Sum: Prov Provider Primary care physician: Henri Sexton, Admitting provider: Gopal Guadarrama MD Discharge Sum: Diag Contributing Factors (1) Dementia: (2) Malnutrition: (3) Cirrhosis: (4) Rectal mass: Discharge Sum: Summary Date and Time Date of admission: 01/30/21 16:45 Summary Details: 85-year-old female resident of [facility] with a history of dementia was in her usual state of health walking about the group home and eating fairly well up through December of 2020. In early January she began declining, walking last, eventually not walking at all. Her appetite was poor she refused to eat. She was brought [facility] emergency room and treated for urinary tract infection with Klebsiella pneumonia. CT of the abdomen suggested cirrhosis and rectal mass. She continued to have a poor appetite. She was evaluated a [facility] and was Treated for fecal impaction and told she might have stomach cancer although no records are available. She was discharged back to the group home. One stair she continued to decline with poor intake increased confusion and restlessness. She was brought [facility] on January 29 due to continued weakness restlessness And poor appetite. She was restless and anxious. Her son who is power of employment attorney did not wish to pursue feeding tube or other life-prolonging measures given her advanced age and dementia. She was therefore admitted to inpatient hospice service for control of her symptoms of agitation and restlessness. Medications were titrated to comfort. Patient peacefully. Additional Data Attending physician: Gopal Guadarrama MD
== END 2021-02-01 17:27 | disposition expired | DRG 951 ==
PROVIDERS: Admitting Provider Internal Medicine; PCP Internal Medicine; Visit Provider Internal Medicine
DX: Z51.5 Encounter for palliative care (principal); E46 Unspecified protein-calorie malnutrition; Z68.23 Body mass index [BMI] 23.0-23.9, adult; K74.60 Unspecified cirrhosis of liver; K62.9 Disease of anus and rectum, unspecified; F03.90 Unspecified dementia, unspecified severity, without behavioral disturbance, psychotic disturbance, mood disturbance, and anxiety; M19.90 Unspecified osteoarthritis, unspecified site; Z87.891 Personal history of nicotine dependence
CPT/HCPCS: A9270; J2060; J2270